=== PATIENT | male | born 1980 | race Caucasian/White ===

== ENCOUNTER 2025-08-07 02:36 | Inpatient (IN) | payer OTHER, SELFPAY ==
--- OUTSIDE RECORDS SUMMARY | 2025-08-07 02:41 | XMS_ITS | Encounter Summary ---
Author Organization [facility] r Address 1 [place] [address] Phone Care Team Providers Care Pharmacy Resource Tech Name Role Phone Federico Crawford LOGISTICS SUPPLY OFFICER Unavailable Unavai lable Pcp-Confirmed, No Primary Care Provider Unavaila ble Reason for Visit * Reason Onset Date Comments External Physician/hospital Call 05/13/2025 Encounter Details Date Type Department Care Team (Late st Contact Info) Description 05/13/2025 Telephone [facility] [address] [facility] 1st [place] [address] [place] [address] External Physician/hospital Call Social History Tobacco Use Types Packs/Day Years Used Date Smoking Tobacco: Never Housing Answer Date Recorded What is your living situation today? I have a [facility] to live 02/27/2025 EOV Answer Date Recorded Many patients we see here ar e being hurt, controlled or threatened by someone they have a relationship with. Are you in a relationship where someone is hurting, controlling or scaring you? No 02/26/2025 Sex and Gender Information Value Date Recorded Sex Assigned at Male 04/23/2024 10:23 AM EDT Legal Sex Male 10:22 AM EDT Gender Identity Male 04/23/2024 10:23 AM EDT Sexual Orientation Straight 06/21/2024 2: 20 PM EDT documented as of this encounter Miscellaneous Notes * Telephone Encounter - Denisa Arnold - 05/13/2025 11:28 AM EDT Patient Reported Reason for Call Patient presents with External Physician/hospital Call Fact Finding Questions Name of Facility and person calling: Pia Tran - [facility] Reason for call: Discuss current admission/medication question Best phone number for the clinic to call you back: [phone] Permission to leave a detailed message: Yes Pia Tran from [facility] at [phone] called requesting to discuss the patient's current admission and to verify his medications. documented in this encounter Plan of Treatment Not on file documented as of this encounter Visit Diagnoses Not on filedocumented in this encounter Care Teams Pharmacy Resource Tech Relationship Specialty Start Date End Date Federico Crawford NP [address] [place] [address] PCP - Insurance 04/30/24 Pcp-Confirmed, No PCP - General 06/21/24 documented as of this encounter
--- OUTSIDE RECORDS SUMMARY | 2025-08-07 02:41 | XMS_ITS | Clinical Summary ---
Author Organization [facility] r Address 1 [place] [address] Phone Care Team Providers Care Field Crew Chief Name Role Phone Federico Crawford SKILLED NURSING PROFESSIONAL Unavailable Unavai lable Pcp-Confirmed, No Primary Care Provider Unavaila ble Allergies Active Allergy Reactions Criticality Noted Date Comments Aloe Unknown 05/25/2024 Medications lisinopriL (PRINIVIL;ZESTR IL) 5 mg tablet Take 1 tablet (5 mg total) by mouth daily. 30 tablet 07/03/2024 Active atorvastatin (LIPITOR) 20 mg tablet Take 1 tablet (20 mg total) by mouth daily with dinner for 30 days. 30 tablet 03/12/2025 Active insulin glargine 100 unit/mL (LANTUS) vial Inject 15 Units under the skin nightly for 30 days. 4.5 mL 03/12/2025 Active metFORMIN (GLUCOPHAGE) 500 mg tablet Take 1 tablet (500 mg total) by mouth 2 (two) times a day with meals for 30 days. 60 tablet 03/12/2025 Active ARIPiprazole (ABILIFY) 20 MG tablet Take 1 tablet (20 mg total) by mouth daily. 90 tablet 1 03/25/2025 Active cloZAPine (CLOZARIL) 50 MG tablet Take 3 tablets (150 mg total) by mouth nightly. 90 tablet 5 03/25/2025 Active melatonin 3 mg Tab Take 2 tablets (6 mg total) by mouth nightly as needed for sleep. 180 tablet 1 03/25/2025 6 Active cyanocobalamin 1000 MCG tablet Take 1 tablet (1,000 mcg total) by mouth daily for 90 days. 90 tablet 05/26/2025 5 Active Active Problems Problem Noted Date Diagnosed Date Hospital discharge follow-up 03/25/2025 Schizoaffective disorder, depressive type ([facility]/ HS/HCC) 06/25/2024 Major depressive disorder, r ecurrent, severe with psychotic symptoms ([facility]/HHS/HCC) 06/19/2024 Suicidal ideations 04/11/2024 Unspecified psychosis not du e to a substance or known physiological condition ([facility]) 04/11/2024 Encounters Date Type Department Care Team Description 08/06/2025 Telephone [facility] [address] [address] Josh Bean MD Coordination Of Care 07/15/2025 Telephone [facility] [address] [address] Josh Bean MD External Physician/hospital Call 06/10/2025 8:00 AM EDT Office Visit [facility] [address] [phone] Josh Bean MD Schizoaffective disorder, depressive type ([facility]/HCC) (Primary Dx) 06/05/2025 Documentation [facility] [address] [place] [phone] Liam Monroy 06/04/2025 10:00 AM EDT Clinical Support [facility] [address] [place] [phone] Alfred Rockwell Schizoaffective disorder, depressive type ([facility]/HHS/HCC) (Primary Dx) 06/03/2025 Telephone [facility] [address] [place] [phone] Alfred Rockwell 05/24/2025 Refill [facility] [address] [place] [address] Josh Bean MD 05/19/2025 Telephone [facility] [address] [facility] 1st floor [address] [place] [phone] Talia Esteves 05/13/2025 Telephone [facility] [address] [address] Josh Bean MD External Physician/hospital Call from Last 3 Months Immunizations Immunization Administration Dates Next Due PPD Test 02/27/2025(),06/25/2024() Social History Tobacco Use Types Packs/Day Years Used Date Smoking Tobacco: Never Tobacco Cessation:Counseling Given: Not Answered Housing Answer Date Recorded What is your living situation today? I have a [facility] place to live 02/27/2025 EOV Answer Date Recorded [...] Orientation Straight 06/21/2024 2: 20 PM EDT Last Filed Vital Signs Vital Sign Reading Time Taken Comments Blood Pressure 108/69 06/10/2025 8:16 AM EDT Pulse 114 06/10/2025 8:16 AM EDT Temperature 36.7 C (98 F) 06/10/2025 8:16 AM EDT Respiratory Rate 18 03/11/2025 5:29 PM EDT Oxygen Saturation 99% 06/10/2025 8:16 AM EDT Inhaled Oxygen Concentration - - Weight 69.4 kg (153 lb) 06/10/2025 8:16 AM EDT Height 170.2 cm (5' 7 ) 02/27/2025 4:43 PM EDT Body Mass Index 23.96 02/27/2025 4:43 PM EDT Plan of Treatment Health Maintenance Due Date Last Done Comments HIV Lifetime Screening 1978 Hepatitis B Lifetime Screening 1978 Psych DARRION-7 Screening 1978 Psych PCL-5 Screening 1978 Psych PHQ Screening 1978 THRIVE SCREENING 1978 Oral Health Screen 1978 HEIP Disability Screen 1983 BEHAVIORAL HEALTH SCREEN 1990 Psych Substance Use Screen 1990 DTAP/TDAP VACCINE (1 - Tdap) 1997 Pneumonia Vaccine 0-49 Years (1 of 2 - PCV) 1997 Colonoscopy FOBT- Positive 2023 Colonoscopy 2023 Colorectal Cancer Screening 2023 FOBT 2023 Sigmoidoscopy 2023 LIPID PANEL 03/25/2026 03/25/2025, 02/10, 06/26/2024 Zoster Vaccine (1 of 2) 2028 COVID-19 Vaccine Discontinued 06/12/2024, 07/2022, 02/10/2021, Additional history exists Hepatitis C Antibody Lifetime Screening Completed 02/28/2025, 02/26/2025 INFLUENZA VACCINE Completed 05/20/2025, , 08/11/2017 HPV VACCINES Aged Out No longer eligi ble based on patient's age to complete this topic IPV VACCINES Aged Out No longer eligi ble based on patient's age to complete this topic MENINGOCOCCAL B Aged Out No longer el igible based on patient's age to complete this topic ROTAVIRUS VACCINES Aged Out No longer eligible based on patient's age to complete this topic Procedures Procedure Name Priority Date/Time Associated Diagnosis Comments LIPID PANEL Routine 03/25/2025 2:39 PM EDT Schizoaffective disorder, depressive type ([facility]) Hospital discharge follow-up HCV AB REFLEX TO CONFIRMATORY/ALEXANDRO L LOAD AND GENOTYPE Routine - Nursing 02/28/2025 10:27 AM EDT from Last 3 Months or Most Recently Relevant to Health Maintenance Results * Lipid panel (03/25/2025 2:39 PM EDT) Cholesterol 124 <200 mg/dL 03/25/2025 3:45 PM EDT [facility] Comment:CHOLESTEROL RISK CLA SSIFICATION: <200 MG/DL = LOW RISK, 200 to 239 MG/DL = BORDERLINE/HIGH RISK, >239 MG/DL = HIGH RISK. Triglyceride 114 40 - 200 MG/DL 03/25/2025 3:45 PM EDT [facility] HDL Cholesterol 47 >34 mg/dL 3:45 PM EDT [facility] Comment:HDL CHOLESTEROL RISK CLASSIFICATION: >55 MG/DL = LOW RISK, <35 MG/DL = HIGH RISK. LDL Cholesterol,Calcu lated 54 <130 mg/dL 03/25/2025 3:45 PM EDT [facility] Comment:LDL CHOLESTEROL RISK CLASSIFICATION: <130 MG/DL = LOW RISK, 130 to 159 MG/DL = BORDERLINE RISK, >159 MG/DL = HIGH RISK. 03/25/2025 2:39 PM EDT 03/25/2025 2:42 PM EDT us Josh Bean MD LAB BLOOD ORDERABLES Final Re sult Performing Organization Address City/[facility]/ZIP Co de Phone Number [facility] CLIA [id number] [address] * HCV Ab reflex to Confirmatory/Viral load and Genotype (02/28/2025 10:27 AM EDT) Hepatitis C Antibody NON-REACTI VE NON-REACTI VE 02/28/2025 5:46 PM EDT [facility] 02/28/2025 10:2 7 AM EDT 02/28/2025 11:06 AM EDT us Idris Hasnen MD LAB BLOOD ORDERABLES Final Res ult [facility] CLIA [id number] [address] from Last 3 Months or Most Recently Relevant to Health Maintenance Advance Directives For more information, please contact: [phone] (Available ) * Full Code (Latest Code Status on File) Date Activated Date Inactivated Comments 02/27/2025 5:16 PM Question Answer Comments Does patient have MOLST form? No Reviewed with patient? No * Full Code Date Activated Date Inactivated Comments 06/25/2024 2:33 PM 02/26/2025 3:40 PM Question Answer Comments Does patient have MOLST form? No Reviewed with patient? No Care Teams Field Crew Chief Relationship Specialty Start Date End Date Federico Crawford NP [address] [place] [address] PCP - Insurance 04/30/24 Pcp-Confirmed, No PCP - General 06/21/24
--- OUTSIDE RECORDS SUMMARY | 2025-08-07 02:41 | XMS_ITS | Encounter Summary ---
Author Organization [facility] r Address 1 [place] [address] Phone Care Team Providers Care Estimating Manager Name Role Phone Federico Crawford HUMAN RESOURCES ADMINISTRATOR Unavailable Unavai lable Pcp-Confirmed, No Primary Care Provider Unavaila ble Encounter Details Date Type Department Care Team (Late st Contact Info) Description 02/26/2025 Telephone [facility] [address] [place] [address] [address] [place] [phone] [place] [address] Social History Tobacco Use Types Packs/Day Years Used Date Smoking Tobacco: Never Housing Answer Date Recorded What is your living situation today? I have a [facility] to live 02/27/2025 EOV Answer Date Recorded [...] PM EDT documented as of this encounter Functional Status * Drug Abuse Screening Test (DAST-10) Question Answer Date of Assessment Author DAST-10 Score 1 02/27/2025 4:50 PM EDT Cris Nielsen RN * Calculated C-SSRS Risk Score (Lifetime/Recent) Answer Date of Assessment Author No Risk Indicated 02/27/2025 4:51 PM EDT Cris Sanchez RN * Ruth Suicide Severity Rating Scale (Screener/Recent Self-Report) Question Answer Date of Assessment Author 1. Wish to be (Past 1 Month) No 025 4:51 PM EDT Cris Sanchez RN 2. Non-Specific Active Suici lila Thoughts (Past 1 Month) No 02/27/2025 4:51 PM EDT Salo Sanchez RN 6. Suicidal Behavior (Lifetime) No 4:51 PM EDT Cris Sanchez RN documented as of this encounter Plan of Treatment Not on file documented as of this encounter Visit Diagnoses Not on filedocumented in this encounter Care Teams Estimating Manager Relationship Specialty Start Date End Date Federico Crawford NP [address] [place] [address] PCP - Insurance 04/30/24 Pcp-Confirmed, No PCP - General 06/21/24 documented as of this encounter
--- OUTSIDE RECORDS SUMMARY | 2025-08-07 02:41 | XMS_ITS | Encounter Summary ---
Author Organization [facility] r Address 1 [place] [address] Phone Care Team Providers Care Estimating Engineer Name Role Phone Federico Crawford PASSENGER TIRE BUILDER Unavailable Unavai lable Pcp-Confirmed, No Primary Care Provider Unavaila ble Reason for Visit * Reason Onset Date Comments Coordination Of Care 08/06/2025 Encounter Details Date Type Department Care Team (Late st Contact Info) Description 08/06/2025 Telephone [facility] [address] [facility] 1st [place] [address] [place] [address] Coordination Of Care Social History Tobacco Use Types Packs/Day Years Used Date Smoking Tobacco: Never Housing Answer Date Recorded What is your living situation today? I have a [facility] to live 02/27/2025 EOV Answer Date [...] encounter Miscellaneous Notes * Telephone Encounter - Roro Portillo - 08/06/2025 9:10 AM EST Patient Reported Reason for Call Patient presents with Coordination Of Care Marylin Cantrell Psychiatrist from [facility] calling in re: to Pt to speak to provider. Advised of TAT. [phone] (cell phone). documented in this encounter Plan of Treatment Not on file documented as of this encounter Visit Diagnoses Not on filedocumented in this encounter Care Teams Estimating Engineer Relationship Specialty Start Date End Date Federico Crawford NP [address] [place] [address] PCP - Insurance 04/30/24 Pcp-Confirmed, No PCP - General 06/21/24 documented as of this encounter
--- OUTSIDE RECORDS SUMMARY | 2025-08-07 02:41 | XMS_ITS | Encounter Summary ---
Author Organization [facility] r Address 1 [place] [address] Phone Care Team Providers Care Displayer Merchandise Name Role Phone Federico Crawford COLD ROLL OPERATOR Unavailable Unavai lable Pcp-Confirmed, No Primary Care Provider Unavaila ble Reason for Visit * Reason Onset Date Comments External Physician/hospital Call 07/15/2025 Encounter Details Date Type Department Care Team (Late st Contact Info) Description 07/15/2025 Telephone [facility] [address] [facility] 1st [place] [address] [place] [address] External Physician/hospital Call Social History Tobacco Use Types Packs/Day Years Used Date Smoking Tobacco: Never Housing Answer Date Recorded What is your living situation today? I have a [facility] to live 02/27/2025 EOV Answer Date Recorded [...] encounter Miscellaneous Notes * Telephone Encounter - Karolina Walker - 07/15/2025 1:47 PM EST Patient Reported Reason for Call Patient presents with External Physician/hospital Call Fact Finding Questions Name of Facility and person calling: [facility] Reason for call: Pt is admitted to hospital planning on discharge and would like to discuss pysch meds. Best phone number for the clinic to call you back: [phone] Permission to leave a detailed message: yes Heath REYES from [facility]. Pt is currently admitted and they are planning his discharge. Heath would like to discuss pt's psych medications with Dr. Bean. Please call back at your earliest convenience. CB: [phone] documented in this encounter Plan of Treatment Not on file documented as of this encounter Visit Diagnoses Not on filedocumented in this encounter Care Teams Displayer Merchandise Relationship Specialty Start Date End Date Federico Crawford NP [address] [place] [address] PCP - Insurance 04/30/24 Pcp-Confirmed, No PCP - General 06/21/24 documented as of this encounter
--- OUTSIDE RECORDS SUMMARY | 2025-08-07 02:42 | XMS_ITS | Encounter Summary ---
Author Organization [facility] r Address 1 [place] [address] Phone Care Team Providers Care Merchandise Team Manager Name Role Phone Federico Crawford FREIGHT AIR BRAKE FITTER Unavailable Unavai lable Pcp-Confirmed, No Primary Care Provider Unavaila ble Encounter Details Date Type Department Care Team (Late st Contact Info) Description 12/16/2024 Documentation [facility]PARTMENT [address] [facility] [place] [address] Onbase, Scan Social History Tobacco Use Types Packs/Day Years Used Date Smoking Tobacco: Never Housing Answer Date Recorded What is your living situation today? I have a [facility] place to live 06/25/2024 EOV Answer Date Recorded Many patients we see here ar e being hurt, controlled or threatened by someone they have a relationship with. Are you in a relationship where someone is hurting, controlling or scaring you? No 06/25/2024 Sex and Gender Information Value Date Recorded Sex Assigned at Male 04/23/2024 10:23 AM EDT Legal Sex Male 10:22 AM EDT Gender Identity Male 04/23/2024 10:23 AM EDT Sexual Orientation Straight 06/21/2024 2: 20 PM EDT documented as of this encounter Plan of Treatment Not on file documented as of this encounter Visit Diagnoses Not on filedocumented in this encounter Care Teams Merchandise Team Manager Relationship Specialty Start Date End Date Federico Crawford NP [address] [place] [address] PCP - Insurance 04/30/24 Pcp-Confirmed, No PCP - General 06/21/24 documented as of this encounter
--- OUTSIDE RECORDS SUMMARY | 2025-08-07 02:42 | XMS_ITS | Encounter Summary ---
Author Organization [facility] r Address 1 [place] [address] Phone Care Team Providers Care Taker Away Name Role Phone Federico Crawford EVENT SERVICES MANAGER Unavailable Unavai lable Pcp-Confirmed, No Primary Care Provider Unavaila ble Reason for Visit * Reason Onset Date Comments External Physician/hospital Call 10/23/2024 Encounter Details Date Type Department Care Team (Late st Contact Info) Description 10/23/[address] [address] [place] [address] External Physician/hospital Call Social History Tobacco Use Types Packs/Day Years Used Date Smoking Tobacco: Never Housing Answer Date Recorded What is your living situation today? I have a [facility] place to live 06/25/2024 EOV Answer [...] encounter Miscellaneous Notes * Telephone Encounter - Fernando Fischer - 10/23/2024 11:39 AM EST Patient Reported Reason for Call Patient presents with External Physician/hospital Call Fact Finding Questions Name of Facility and person calling: [facility] Reason for call: Pt History Best phone number for the clinic to call you back: [phone] Stefania calling from [facility] Psych[facility]ric [facility], states she working with Dr [email or web address] Was looking to connect with you Adv tat documented in this encounter Plan of Treatment Not on file documented as of this encounter Visit Diagnoses Not on filedocumented in this encounter Care Teams Taker Away Relationship Specialty Start Date End Date Federico Crawford NP [address] [place] [address] PCP - Insurance 04/30/24 Pcp-Confirmed, No PCP - General 06/21/24 documented as of this encounter
--- OUTSIDE RECORDS SUMMARY | 2025-08-07 02:42 | XMS_ITS | Clinical Summary ---
Author Organization [facility] Address [address] [place] [address] Care Team Providers Care Income Tax Advisor Name Role Phone None, Pcp Primary Care Provider Unavailmaliha e Federico Crawford CLASSIFIED ADVERTISING MANAGER Unavailable [phone] Medications * This document contains information received from the source organization and may not represent a complete record from that organization. FLUoxetine (PROzac) 40 MG capsule 40 MG PO DAILY #30 CAP 30 Days 30 capsule 0 04/25/2024 Active metFORMIN (GLUCOPHAGE) 500 MG tablet 500 MG PO BID@0800,17 00 #60 TAB 30 Days 60 tablet 0 04/23/2024 Active prazosin (MINIPRESS) 1 MG capsule 2 MG PO HS #30 CAP 30 Days 30 capsule 0 04/25/2024 Active insulin glargine (LANTUS SOLOSTAR U-100 INSULIN) 100 unit/mL (3 mL) SubQ Pen 15 UNIT SQ HS 7 Days 1 Syringe 1 04/23/2024 Active Active Problems Problem Noted Date Diagnosed Date Unspecified psychosis not du e to a substance or known physiological condition 04/11/2024 Suicidal ideations 04/11/2024 Social History Tobacco Use Types Packs/Day Years Used Date Smoking Tobacco: Never Assessed Sex and Gender Information Value Date Recorded Sex Assigned at Male 04/11/2024 6:48 PM EDT Legal Sex Male 9:33 AM EDT Gender Identity Male 04/11/2024 4:19 PM EDT Sexual Orientation Not on file Last Filed Vital Signs Vital Sign Reading Time Taken Comments Blood Pressure - - Pulse - - Temperature - - Respiratory Rate - - Oxygen Saturation - - Inhaled Oxygen Concentration - - Weight 75 kg (165 lb 5.5 oz) 04/11/2024 9:35 AM EDT Height 167.6 cm (5' 6 ) 04/11/2024 9:35 AM EDT Body Mass Index 26.69 04/11/2024 9:35 AM EDT Plan of Treatment Health Maintenance Due Date Last Done Comments Blood Pressure 1978 PSA 1978 Prostate Cancer Screening 1978 SDM 1978 Urine Microalbumin 1978 Depression Screening 1990 Hepatitis C Screening 1996 DTaP,Tdap,and Td Vaccines (1 - Tdap) 1997 Pneumococcal Vaccine (1 of 2 - PCV) 1997 CT Colonography 2023 Colonoscopy 2023 Colorectal Cancer Screening 2023 FIT 2023 FOBT 2023 Multitarget Stool DNA (Cologuard) 2023 Sigmoidoscopy 2023 Hemoglobin A1c 10/14/2024 04/13/2024 COVID-19 Vaccine (1 - 2024-2 6 season) 2025 Influenza Vaccine (#1) 2025 Lipid Panel 06/26/2025 06/26/2024, 04/13/2024 Meningococcal B Vaccines Aged Out No longer eligible based on patient's age to complete this topic Meningococcal Vaccines Aged Out No lo nger eligible based on patient's age to complete this topic Procedures Procedure Name Priority Date/Time Associated Diagnosis Comments HEMOGLOBIN A1C Routine 04/13/2024 7:40 AM EDT LIPID PANEL Routine 04/13/2024 7:40 AM EDT from Last 3 Months or Most Recently Relevant to Health Maintenance Results * (ABNORMAL) Hemoglobin A1C (04/13/2024 7:40 AM EDT) Hemoglobin A1C 12.0(H) <=5.7 % CONVE RSION FROM [facility] Comment: The [place] [employer] has revised the recommendations for reference ranges for Glycohemoglobin. They are: < 5.7%: Normal Range in non-diabetic patients 5.7- 6.4%: Repeated measurements in this range consistent with pre-diabetes. >or = 6.5%: Consistent with diabetes 04/13/2024 7:40 AM EDT 04/13/2024 7:49 AM EDT us Kala Robles MD LAB BLOOD ORDERABLES Final Res ult CONVERSION FROM [facility] * (ABNORMAL) Lipid Panel (04/13/2024 7:40 AM EDT) Cholesterol 315(H) 0 - 200 mg/dL CONVERSION FROM [facility] Triglycerides 177(H) 0 - 150 mg/dL CONVERSION FROM [facility] HDL Cholesterol 61 >=60 mg/dL CONVERSION FROM [facility] Direct LDL Cholesterol 230(H) 0 - 100 mg/dL CONVERSION FROM [facility] Ratio Chol/HDL 5 0 - 5 CONVE RSION FROM [facility] [employer] 04/13/2024 7:40 AM EDT 04/13/2024 7:49 AM EDT us Kala Robles MD LAB BLOOD ORDERABLES Final Res ult CONVERSION FROM [facility] from Last 3 Months or Most Recently Relevant to Health Maintenance [facility] [employer] Care Teams Income Tax Advisor Relationship Specialty Start Date End Date None, Pcp, PCP - General 04/11/24 Federico Crawford NP PCP - Insurance Assigned PCP 12/04/24
--- OUTSIDE RECORDS SUMMARY | 2025-08-07 02:42 | XMS_ITS | Encounter Summary ---
Author Organization [facility]to [facility] Address [address] [place] [address] Care Team Providers Care Transformer Coil Winder Name Role Phone None, Pcp Primary Care Provider Federico Marquez TELEPHONE SALES REPRESENTATIVE Unavailable [phone] Encounter Details Date Type Department Care Team (Late st Contact Info) Description 04/11/2024 Lab [facility] Eloy Canales MD [address] [place] [address] Social History Tobacco Use Types Packs/Day Years Used Date Smoking Tobacco: Never Assessed Sex and Gender Information Value Date Recorded Sex Assigned at Male 04/11/2024 6:48 PM EDT Legal Sex Male 9:33 AM EDT Gender Identity Male 04/11/2024 4:19 PM EDT Sexual Orientation Not on file documented as of this encounter Plan of Treatment Not on file documented as of this encounter Procedures Procedure Name Priority Date/Time Associated Diagnosis Comments CULTURE, AEROBIC, URINE Routine 04/11/2024 11:22 AM EDT documented in this encounter Results * Culture, Aerobic, Urine (04/11/2024 11:22 AM EDT) Culture No growth DK 04/12/2024 12:59 PM EDT [facility] Urine MID-STREAM URINE SPECIMEN / Unknown 04/11/2024 11:22 AM EDT 04/11/2024 2:25 PM EDT us Eloy Canales MD MICROBIOLOGY - GENERAL ORDERABLE S Final Result [facility] [address] [facility] [place] [address], documented in this encounter Visit Diagnoses Not on filedocumented in this encounter Care Teams Transformer Coil Winder Relationship Specialty Start Date End Date None, Pcp, PCP - General 04/11/24 Federico Crawford NP PCP - Insurance Assigned PCP 12/04/24 documented as of this encounter
--- OUTSIDE RECORDS SUMMARY | 2025-08-07 02:42 | XMS_ITS | Encounter Summary ---
Author Organization [facility] r Address [address] [place] [address] Phone Care Team Providers Care Chamfering Machine Operator Name Role Phone Federico Crawford MATH TEACHER Unavailable Unavai lable Pcp-Confirmed, No Primary Care Provider Unavaila ble Reason for Visit * Reason Onset Date Comments Appointment 01/08/2025 Encounter Details Date Type Department Care Team (Late st Contact Info) Description 01/08/2025 Telephone [facility] [address] [facility] 1st [place] [address] [place] [address] Appointment Social History Tobacco Use Types Packs/Day Years Used Date Smoking Tobacco: Never Housing Answer Date Recorded What is your living situation today? I have a [facility] to live 06/25/2024 EOV Answer Date Recorded [...] encounter Miscellaneous Notes * Telephone Encounter - Madalyn Skyler - 01/08/2025 9:17 AM EDT No chief complaint on file. Pt called to schedule appt with Provider last seen 08/2024. Pt cb # [phone] advised TAT documented in this encounter Plan of Treatment Not on file documented as of this encounter Visit Diagnoses Not on filedocumented in this encounter Care Teams Chamfering Machine Operator Relationship Specialty Start Date End Date Federico Crawford NP [address] [place] [address] PCP - Insurance 04/30/24 Pcp-Confirmed, No PCP - General 06/21/24 documented as of this encounter
--- OUTSIDE RECORDS SUMMARY | 2025-08-07 02:42 | XMS_ITS | Encounter Summary ---
Author Organization [facility] r Address [address] [place] [address] Phone Care Team Providers Care Blade Bender Furnace Tender Name Role Phone Federico Crawford CHARGEBACK ANALYST Unavailable Unavai lable Pcp-Confirmed, No Primary Care Provider Unavaila ble Reason for Visit * Reason Onset Date Comments Medication Refill 01/27/2025 Encounter Details Date Type Department Care Team (Late st Contact Info) Description 01/27/2025 Refill [facility] [address] [place] [address] Pcp-Confirmed, No Social History Tobacco Use Types Packs/Day Years Used Date Smoking Tobacco: Never Housing Answer Date Recorded What is your living situation today? I have a [facility] to live 06/25/2024 EOV Answer Date Recorded [...] on filedocumented in this encounter Care Teams Blade Bender Furnace Tender Relationship Specialty Start Date End Date Federico Crawford NP [address] [place] [address] PCP - Insurance 04/30/24 Pcp-Confirmed, No PCP - General 06/21/24 documented as of this encounter
--- OUTSIDE RECORDS SUMMARY | 2025-08-07 02:42 | XMS_ITS | Encounter Summary ---
Author Organization [facility] r Address [address] [place] [address] Phone Care Team Providers Care Business Objects Consultant Name Role Phone Federico Crawford SORT SUPERVISOR Unavailable Unavai lable Pcp-Confirmed, No Primary Care Provider Unavaila ble Encounter Details Date Type Department Care Team (Late st Contact Info) Description 10/10/2024 Telephone [facility] [address] [facility] 1st floor [id number] [place] [phone] [place] [address] Social History Tobacco Use Types Packs/Day Years Used Date Smoking Tobacco: Never Housing Answer Date Recorded What is your living situation today? I have a [facility] to live 06/25/2024 EOV Answer Date [...] on filedocumented in this encounter Care Teams Business Objects Consultant Relationship Specialty Start Date End Date Federico Crawford NP [address] [place] [address] PCP - Insurance 04/30/24 Pcp-Confirmed, No PCP - General 06/21/24 documented as of this encounter
[2025-08-07 03:05] VITALS: BP 144/58; PULSE 109; RESP 18; TEMP 36.4; O2SAT 95
[2025-08-07 03:42] VITALS: BMI 23.2
[2025-08-07 03:53] LABS: Glucose, Whole Blood 175 mg/dL (60-115)
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
[2025-08-07 07:00] VITALS: BMI 23.3
[2025-08-07 08:09] LABS: Glucose, Whole Blood 153 mg/dL (60-115)
--- NOTE | 2025-08-07 08:19 | PHA.MEDREC ---
Pharmacy Consult ? Medication Reconciliation Pharmacy has reviewed the medication reconciliation done by nursing and also updated med list using discharge med list from [facility]. It's noted on med list patient last received clozapine 150 mg at bedtime on 08/05/25 @2116, insulin glargine 16 units at bedtime and patient is not taking cefpodoxime 200 mg (q12h) reported on 08/03/25.
--- NOTE | 2025-08-07 08:36 | HO.PSYADMNOT ---
HPI Date of Service: 08/07/25 Chief Complaint: Schizoaffective D/O & PTSD Sources of Information: patient interviewed, chart reviewed and crisis/core team assessment reviewed HPI Subjective Notes: Lowry Warning and Conditional Voluntary Narrative: Mr. Montelongo is a 45 year-old male with hx of schizophrenia. Pt was brought to [facility] ED due to presenting as confused and less interactive. It appears that there had been concerns in terms of his ability to care for himself and follow up with care at home. He had episode of urinary retention for what freitas was inserted on 05/21/2025 complicated by ventral meatal erosion. He failed to attend OP appointments with OP urologist. He had UTI but unclear if he had completed treatment. He was medically admitted. He was afebrile. No respiratory symptoms noted although chest CT did show clustered groundglass nodules. He initially was started on IV antibiotic given concern of AMS, but these were discontinued when culture came back negative. Per [facility]NA pt had stopped taking clozapine few days prior to presenting to the ED. He also had constipation, which was proactively treated with lactulose, senna and miralax. Freitas was removed on 08/05/2025- will continue to monitor urinary retention. Also, his mother 4 days prior to presenting to the hospital. Pt presents as calm and cooperative. He reports he was confused. He reports he remembered hearing voices but denies any voices today. He does report at baseline he sees animals and people. He report she saw two cats jumping out of bed today. He reports auditory hallucinations are common but denies hearing voices today. He denies SI/HI. He reports he started clozapine one year ago and it has been helpful. He reports his sleep is good. He reports he has a hx of suicide attempts but none recently. He reports his medications are in a locked box and [facility] gives them to him given extensive hx of OD on his medications (pt reports more than 50 times he has OD, his sister of suicide, and brother has attempted suicide). He presents as future oriented stating that he is feeling better and hopes at some point soon to return to school. Past Psychiatric History: Inpt: he reports 2 hospitalization. last one was back in April 2025. OP: sees therapist but can't remember name. He reports he has been seeing psychiatrist, Josh Bean for the past 2 years. Past medication trials: clozapine, abilify. Hx of suicide attempts: pt reports more than 50 times he has intentionally OD. Now his medications are in a locked box. Medical Evaluation Reviewed: Yes [facility] Medical History (Updated 08/07/25 @ 15:47 by Calista Jo NP) Urinary retention Diabetes Family History: sister of suicide, brother has attempted suicide. Social History: Pt was born in [place]. He reports he is . No children. Completed some college. currently not working. Substance History: denies Trauma History: denies Diagnostics Vital Signs (24Hr): Vital Signs - 24 hr 08/07/25 03:05 Temperature 97.6 F Pulse Rate 109 H Respiratory Rate 18 Blood Pressure 144/58 H Pulse Oximetry 95 Oxygen Delivery Method Room Air BMI result Body Mass Index 23.2 Labs 08/07/25 12:07 08/07/25 12:07 Labs: Laboratory Results - last 48 hr 08/07/25 08/07/25 03:48 08:02 POC Glucose 175 H 153 H Meds/Allergies Meds Home Medications ?Medication ?Instructions ?Recorded ?Confirmed ?Type aripiprazole 20 mg tablet 20 mg PO DAILY 08/07/25 08/07/25 History atorvastatin 20 mg tablet 20 mg PO DAILY 08/07/25 08/07/25 History bacitracin 500 unit/gram topical 1 appl topical TID 08/07/25 08/07/25 History ointment benztropine 1 mg tablet 1 mg PO BID 08/07/25 08/07/25 History clozapine 100 mg tablet 150 mg PO BEDTIME 08/07/25 08/07/25 History cyanocobalamin (vitamin B-12) 1,000 mcg PO DAILY 08/07/25 08/07/25 History 1,000 mcg tablet (Vitamin B-12) diclofenac sodium 1 % topical gel 2 g topical QID PRN Pain 08/07/25 08/07/25 History docusate sodium 100 mg capsule 100 mg PO BID 08/07/25 08/07/25 History ferrous sulfate 325 mg (65 mg 325 mg PO DAILY 08/07/25 08/07/25 History iron) tablet finasteride 5 mg tablet 5 mg PO DAILY 08/07/25 08/07/25 History glipizide 10 mg tablet 10 mg PO DAILY 08/07/25 08/07/25 History insulin glargine 100 unit/mL 16 unit subcut BEDTIME 08/07/25 08/07/25 History subcutaneous solution (Lantus U-100 Insulin) melatonin 3 mg tablet 3 mg PO BEDTIME PRN insomnia 08/07/25 08/07/25 History metformin 500 mg tablet 500 mg PO BID 08/07/25 08/07/25 History polyethylene glycol 3350 17 34 g PO BID 08/07/25 08/07/25 History gram/dose oral powder (Gavilax) sennosides 8.6 mg tablet (senna) 17.2 mg PO BID 08/07/25 08/07/25 History tamsulosin 0.4 mg capsule 0.4 mg PO DAILY 08/07/25 08/07/25 History Allergies Allergies Allergy/AdvReac Type Severity Reaction Status Date / Time alchandler vera AdvReac Hives Verified 08/07/25 04:24 Mental Status Exam Mental Status Exam Narrative: Appearance: wearing hospital gown, fair hygiene, in NAD Behavior: cooperative Psychomotor: no agitation or retardation noted Speech: clear, normal rate/rhythm/volume, spontaneous TP: linear TC: feeling better Mood: better Affect: constricted SI: denies HI: denies VH/AH: reports at baseline intermittent VH/AH. Delusions: no overt delusional content reported Insight/judgment: fair x 2. Memory/cog: alert, oriented x 3. Assessment & Plan Assessment & Plan (1) Schizophrenia: Status: Acute Code(s): F20.9 - Schizophrenia, unspecified Plan Mr. Montelongo is a 45 year-old male with hx of schizophrenia who initially was brought by his brother to [facility] ED due to presenting as more confused and not interacting as much. He was medically admitted for AMS. He was treated for urinary retention, zena came out on 08/05/2025- we will continue bladder scans to make sure retention is not ongoing. He also had constipation which seems to have resolved. He is currently on senna and miralax regimen. He was also restarted on clozapine which he had stopped days prior to presenting to ED. He currently does not present with acute symptoms. He reports at baseline some VH/AH. He does not present with overt delusional content. He has agreed to continue medications. He also denies SI/HI. Note he does have significant hx of suicide attempts as well as strong family hx of completed suicide (sister) and brother as also attempted suicide. He has supports in the community from his OP psychiatrist, Dr. Josh Bean (pending collateral information) and VNA through [facility] ([phone]). PLAN 1. admit to M3, CV, 15 minutes checks for safety 2. will check clozapine levels on 08/07 prior to night time dose. continue abilify 20mg po daily which was increased from 15mg to 20 at prior hospital. 3. continue bladder scan x 2 days. straigh cath if residual>500cc, may need to see urology. 4. obtain collateral information 5. aftercare planning. Patient educated on: diagnosis and medication risk/benefits Reason for continued inpatient stay Substantial Risk for: inability to function Statement Statement: I have reviewed the history and physical and performed a pertinent examination on my patient. No changes have occurred unless specified. If the History and Physical was not performed prior to admission, the Hospitalist's service will be consulted for completing the admission physical. Time Spent With Patient Time: Total time managing care of this patient today ____ minutes.
[2025-08-07 09:10] VITALS: BP 109/72; PULSE 89; RESP 14; TEMP 36.5; O2SAT 98
--- NOTE | 2025-08-07 09:18 | P.CONHOSP_ITS ---
History of Present Illness Data of Consult Service Date: 08/07/25 Primary Care Provider: Unknown Physician HPI Reason for consult: routine admission physical This is a 45 year old male with history of HLD, diabetes, urinary retention admitted from [facility] for treatment of schizoaffective disorder. At [facility] he was reportedly treated for urinary tract infection, also noted to have imaging that showed ground-glass nodules in the left lower lobe which reportedly have since resolved. He has history of urinary retention and had Freitas catheter placed proximally 3 months ago but he had failed to follow-up outpatient with Urology. He was noted to have ventral meatal erosion, Freitas catheter was removed and he reportedly passed a voiding trial on 08/05. This morning he states he has not yet urinated. He denies abdominal pain, nausea or vomiting. Review of Systems Review of Systems: Yes all other systems are reviewed and are negative Constitutional: Constitutional: Denies chills and Denies fever(s) Cardiovascular: Cardiovascular: Denies chest pain, Denies palpitations and Denies dyspnea Respiratory: Respiratory: Reports cough and Denies dyspnea Endocrine: Endocrine: Denies palpitations [facility] Medical History (Updated 08/07/25 @ 11:05 by AMY Singh) Urinary retention Diabetes Social History Household Members: Family Housing: Apartment Do you presently have visiting nurse or other home services: Yes Patient Tobacco Use Status: Never used Tobacco Have you been hit, kicked, punched, or otherwise hurt by someone within the past year? If so, by whom?: No Do you feel safe in your current relationship?: No Current Relationship Is there a partner from a previous relationship who is making you feel unsafe now?: No Are you made to feel afraid or neglected: No Advance Directives: No Advance Directives Information Provided: No Advance Directives on File: No Do you have a plan to hurt others: No Plan Recently lost weight without trying: No Nutrition Risks: No Nutritional Risk Poor oral hygiene: No Meds Allergies Allergy/AdvReac Type Severity Reaction Status Date / Time aloe vera AdvReac Hives Verified 08/07/25 04:24 Active Medications: Current Medications Acetaminophen (Acetaminophen 325 Mg Tablet) 650 mg PO Q6H PRN PRN Reason: Headache/Pain, Scale 1-10 Al Hydroxide/Mg Hydroxide (Magnesium Hydrox/Alum Hydrox 30 Ml Oral.Susp) 30 ml PO Q6H PRN PRN Reason: Heartburn/Nausea Aripiprazole (Aripiprazole 20 Mg Tablet) 20 mg PO DAILY [facility] Atorvastatin Calcium (Atorvastatin Calcium 20 Mg Tablet) 20 mg PO DAILY [facility] Benztropine Mesylate (Benztropine Mesylate 1 Mg Tablet) 1 mg PO BID [facility] Clozapine 100 mg/ Clozapine 50 (mg) 150 mg PO BEDTIME [facility] Cyanocobalamin (Cyanocobalamin (Vitamin B-12) 1,000 Mcg Tablet) 1,000 mcg PO DAILY [facility] Finasteride (Finasteride 5 Mg Tablet) 5 mg PO DAILY [facility] Glipizide (Glipizide 10 Mg Tablet) 10 mg PO DAILY [facility] Hydroxyzine HCl (Hydroxyzine Hcl 25 Mg Tablet) 25 mg PO Q6H PRN PRN Reason: mild anxiety Insulin Glargine (Insulin Glargine,Hum.Rec.Anlog 100 Unit/Ml 10 Ml Vial) 16 unit SUBCUT BEDTIME [facility] Magnesium Hydroxide (Milk Of Magnesia 30 Ml Oral.Susp) 30 ml PO DAILY PRN PRN Reason: Constipation Melatonin (Melatonin 3 Mg Tablet) 3 mg PO BEDTIME PRN PRN Reason: Insomnia Metformin HCl (Metformin Hcl 500 Mg Tablet) 500 mg PO BIDWM [facility] Nicotine Polacrilex (Nicotine Polacrilex 2 Mg Gum) 2 mg BUCCAL Q2H PRN PRN Reason: Nicotine Cravings Polyethylene Glycol (Polyethylene Glycol 3350 17 Gm Powd.Pack) 17 gm PO DAILY PRN PRN Reason: Constipation Senna/Docusate Sodium (Sennosides/Docusate Sodium Tablet) 1 tab PO BID [facility] Tamsulosin HCl (Tamsulosin Hcl 0.4 Mg Capsule) 0.4 mg PO DAILY [facility] Trazodone HCl (Trazodone Hcl 50 Mg Tablet) 50 mg PO BEDTIME MRX1 PRN PRN Reason: Insomnia Vitamin D (Cholecalciferol (Vitamin D3) 25 Mcg Tablet) 50 mcg PO DAILY [facility] Home Medications ?Medication ?Instructions ?Recorded ?Confirmed ?Last Taken ?Type aripiprazole 20 mg tablet 20 mg PO DAILY 08/07/2507/1308/06/25 History atorvastatin 20 mg tablet 20 mg PO DAILY 08/07/2507/1308/06/25 21:00 History bacitracin 500 unit/gram topical 1 appl topical TID 08/07/25 Unknown History ointment benztropine 1 mg tablet 1 mg PO BID 08/07/25 5 08/07/25 03:25 History clozapine 100 mg tablet 150 mg PO BEDTIME 08/07/25 1 10/07/24 08/05/25 21:17 History cyanocobalamin (vitamin B-12) 1,000 mcg PO DAILY 08/0708/07/25 08/06/25 09:00 History 1,000 mcg tablet (Vitamin B-12) diclofenac sodium 1 % topical gel 2 g topical QID PRN Pain 08/07/25 08/07/25 Unknown History docusate sodium 100 mg capsule 100 mg PO BID 08/07/25 08/07/25 08/05/25 08:36 History ferrous sulfate 325 mg (65 mg 325 mg PO DAILY 08/07/25 08/07/25 08/04/25 History iron) tablet finasteride 5 mg tablet 5 mg PO DAILY 08/07/2508/0708/06/25 21:00 History glipizide 10 mg tablet 10 mg PO DAILY 08/07/2507/1308/06/25 09:00 History insulin glargine 100 unit/mL 16 unit subcut BEDTIME 08/07/25 08/06/25 21:00 History subcutaneous solution (Lantus U-100 Insulin) melatonin 3 mg tablet 3 mg PO BEDTIME PRN insomnia 08/07/25 08/07/25 Unknown History metformin 500 mg tablet 500 mg PO BID 08/07/2508/07 Unknown History polyethylene glycol 3350 17 34 g PO BID 08/07/2508/0708/06/25 09:00 History gram/dose oral powder (Gavilax) sennosides 8.6 mg tablet (senna) 17.2 mg PO BID 08/07/25 08/06/25 08:00 History tamsulosin 0.4 mg capsule 0.4 mg PO DAILY 08/07/2508/06/25 21:00 History Physical Exam Vital Signs and Narrative: Vital Signs: Last Vital Signs Temp 97.6 F 08/07/25 03:05 Pulse 109 H 08/07/25 03:05 Resp 18 08/07/25 03:05 BP 144/58 H 08/07/25 03:05 Pulse Ox 95 08/07/25 03:05 O2 Del Method Room Air 08/07/25 03:05 BMI result Body Mass Index 23.2 Const: General: cooperative, comfortable, no acute distress, alert and awake Nutritional Appearance: average body habitus Orientation/consciousness: patient oriented x3 Resp: Effort & Inspection: normal respiratory effort, able to speak in complete sentences, no respiratory distress and no use of accessory muscles Auscultation: clear to auscultation bilaterally Cardio: Rate: regular rate Neuro: General: patient oriented x3, moves all extremities and CN's II-XI intact bilaterally Results Labs Labs: Laboratory Results - last 24 hr 08/07/25 08/07/25 03:48 08:02 POC Glucose 175 H 153 H Assessment and Plan (1) Urinary retention: Status: Acute Plan This is a 45-year-old male with history of diabetes, hyperlipidemia, recent UTI, urinary retention with Freitas catheter removed August 05 admitted to inpatient psych floor due to SI Urinary retention s/p freitas catheter which was removed at outside hospital on 08/05 check bladder scan, straight cath parameters continue baseline flomax, proscar on multiple meds that could contribute may need urology evaluation depending on clinical course T2DM Hba1c 6.2 at outside hospital follow POCs per unit protocol, recommend diabetic diet continue baseline metformin, glipizide, lantus HLD continue statin Thank you for allowing us to participate in the care of this patient. There are no acute medical issues at this time. Feel free to consult if anything acute arises.
[2025-08-07 12:21] LABS: MANUAL DIFF FLAG NO
[2025-08-07 12:23] LABS: Hematocrit 39.6 % (42.0-52.0); Hemoglobin 13.1 g/dl (14.0-18.0); Imm Gran Abs Auto 0.03 X10*3/uL (0.00-0.03); Imm Gran Pct Auto 0.3 % (0.0-0.4); Lymphocytes Absolute Auto 1.5 X10*3/uL (1.2-4.9); Mean Corpuscular HGB Conc 33.1 g/dl (31.0-36.0); Mean Corpuscular Hemoglobin 29.4 pg (27.0-33.0); Mean Corpuscular Volume 88.8 fL (80.0-98.0); NRBC Abs Auto 0.000 X10*3/uL (0.0-0.012); NRBC Pct Auto 0.0 /100WBC (0.0-0.2); Platelet Count 285 X10*3/uL (160-400); Red Blood Count 4.46 X10*6/uL (4.60-5.80); White Blood Count 9.8 X10*3/uL (4.8-10.8)
[2025-08-07 12:39] LABS: Creatinine Clr Calc Pharmacy 103.9; Estimated Glomerular Filt Rate > 60
[2025-08-07 12:47] LABS: Alanine Aminotransferase 22 U/L (0-40); Albumin Level 4.7 g/dL (3.5-5.0); Alkaline Phosphatase 102 U/L (39-117); Anion Gap 14 (12-20); Aspartate Amino Transferase 27 U/L (5-37); Blood Urea Nitrogen 9 mg/dL (9-16); Calcium 9.6 mg/dL (8.4-10.2); Carbon Dioxide 29 mmol/L (22-29); Chloride 100 mmol/L (96-108); Cholesterol 198 mg/dL (<200); Creatinine Clr Calc Pharmacy 103.9; Estimated Glomerular Filt Rate > 60; HDL Cholesterol 48 mg/dL (>40); Potassium 3.8 mmol/L (3.3-5.1); Sodium 139 mmol/L (135-145); Total Protein 7.2 g/dL (6.5-8.0); Triglycerides 198 mg/dL (<150)
[2025-08-07 13:27] LABS: Vitamin B12 > 2000 pg/mL (200-900)
[2025-08-07 13:48] LABS: Folate 5.6 ng/mL (> or = 4.0)
[2025-08-07 20:00] VITALS: BP 111/74; PULSE 91; RESP 16; TEMP 36.3; O2SAT 99
[2025-08-07 20:24] LABS: Glucose, Whole Blood 138 mg/dL (60-115)
[2025-08-07] MEDS: Insulin Glargine,Hum.rec.anlog 100 UNIT/ML 10 ML VIAL 16 UNIT SUBCUT (20:44)
--- NOTE | 2025-08-08 06:03 | P.PNPSI_ITS ---
Subjective Subjective Date of Service: 08/08/25 Reason For Visit: Schizoaffective D/O & PTSD Subjective Notes: Conditional Voluntary Interim History: Chart reviewed. Case discussed in team. Pt reports that he's feeling better. He states that he sees fake people and hears AH, which is distressing, but zuleyma by walking away. He denies SI/violent ideation. Denies med SE. Reports good sleep/appetite. P- Continue current tx plan Medication Compliance: Yes Diagnostics Vital Signs (24Hr): Vital Signs - 24 hr 08/07/25 09:10 08/07/25 20:00 Temperature 97.7 F 97.3 F Pulse Rate 89 91 Respiratory Rate 14 16 Blood Pressure 109/72 111/74 Pulse Oximetry 98 99 Oxygen Delivery Method Room Air Room Air BMI result Body Mass Index 23.3 Labs 08/07/25 12:07 08/07/25 12:07 Labs: Laboratory Results - last 48 hr 08/07/25 08/07/25 08/07/25 03:48 08:02 12:07 WBC 9.8 RBC 4.46 L Hgb 13.1 L Hct 39.6 L MCV 88.8 MCH 29.4 MCHC 33.1 RDW 13.2 Plt Count 285 MPV 9.3 L Immature Gran % (Auto) 0.3 Neut % (Auto) 78.3 H Lymph % (Auto) 15.5 L [place] % (Auto) 5.6 Eos % (Auto) 0.1 Baso % (Auto) 0.2 Lymph # (Auto) 1.5 [place] # (Auto) 0.6 Eos # (Auto) 0.0 Baso # (Auto) 0.0 Abs Immat Gran (auto) 0.03 Absolute Neuts (auto) Cancelled Absolute Nucleated RBC Nucleated RBC % (auto) Sodium Potassium Chloride Carbon Dioxide Anion Gap BUN Creatinine Estim Creat Clear Calc Estimated GFR POC Glucose 175 H 153 H Random Glucose Estimat Average Glucose Hemoglobin A1c % Calcium Total Bilirubin AST ALT Alkaline Phosphatase Total Protein Albumin Triglycerides Cholesterol LDL Cholesterol, Calc HDL Cholesterol Vitamin B12 Folate TSH 08/07/25 08/07/25 08/07/25 12:07 12:07 12:07 WBC RBC Hgb Hct MCV MCH MCHC RDW Plt Count MPV Immature Gran % (Auto) Neut % (Auto) Lymph % (Auto) [place] % (Auto) Eos % (Auto) Baso % (Auto) Lymph # (Auto) [place] # (Auto) Eos # (Auto) Baso # (Auto) Abs Immat Gran (auto) Absolute Neuts (auto) 7.6 Absolute Nucleated RBC 0.000 Nucleated RBC % (auto) 0.0 Sodium 139 Potassium 3.8 Chloride 100 Carbon Dioxide 29 Anion Gap 14 BUN 9 Creatinine 0.85 0.85 Estim Creat Clear Calc 103.9 103.9 Estimated GFR > 60 POC Glucose Random Glucose Estimat Average Glucose Hemoglobin A1c % Calcium Total Bilirubin AST ALT Alkaline Phosphatase Total Protein Albumin Triglycerides Cholesterol LDL Cholesterol, Calc HDL Cholesterol Vitamin B12 Folate TSH 08/07/25 08/07/25 12:07 19:53 WBC RBC Hgb Hct MCV MCH MCHC RDW Plt Count MPV Immature Gran % (Auto) Neut % (Auto) Lymph % (Auto) [place] % (Auto) Eos % (Auto) Baso % (Auto) Lymph # (Auto) [place] # (Auto) Eos # (Auto) Baso # (Auto) Abs Immat Gran (auto) Absolute Neuts (auto) Absolute Nucleated RBC Nucleated RBC % (auto) Sodium Potassium Chloride Carbon Dioxide Anion Gap BUN Creatinine Estim Creat Clear Calc Estimated GFR > 60 POC Glucose 138 H Random Glucose 154 H Estimat Average Glucose 131 Hemoglobin A1c % 6.2 H Calcium 9.6 Total Bilirubin 0.3 AST 27 ALT 22 Alkaline Phosphatase 102 Total Protein 7.2 Albumin 4.7 Triglycerides 198 H Cholesterol 198 LDL Cholesterol, Calc 111 H HDL Cholesterol 48 Vitamin B12 > 2000 H Folate 5.6 TSH 2.44 Medications Medications Current Medications Acetaminophen (Acetaminophen 325 Mg Tablet) 650 mg PO Q6H PRN PRN Reason: Headache/Pain, Scale 1-10 Last Admin: 08/07/25 20:45 Dose: 650 mg Al Hydroxide/Mg Hydroxide (Magnesium Hydrox/Alum Hydrox 30 Ml Oral.Susp) 30 ml PO Q6H PRN PRN Reason: Heartburn/Nausea Aripiprazole (Aripiprazole 20 Mg Tablet) 20 mg PO DAILY [facility] Last Admin: 08/07/25 09:22 Dose: 20 mg Atorvastatin Calcium (Atorvastatin Calcium 20 Mg Tablet) 20 mg PO DAILY [facility] Last Admin: 08/07/25 09:22 Dose: 20 mg Benztropine Mesylate (Benztropine Mesylate 1 Mg Tablet) 1 mg PO BID [facility] Last Admin: 08/07/25 20:45 Dose: 1 mg Clozapine 100 mg/ Clozapine 50 (mg) 150 mg PO BEDTIME [facility] Last Admin: 08/07/25 20:45 Dose: 150 mg Cyanocobalamin (Cyanocobalamin (Vitamin B-12) 1,000 Mcg Tablet) 1,000 mcg PO DAILY [facility] Last Admin: 08/07/25 09:22 Dose: 1,000 mcg Finasteride (Finasteride 5 Mg Tablet) 5 mg PO DAILY [facility] Last Admin: 08/07/25 09:21 Dose: 5 mg Glipizide (Glipizide 10 Mg Tablet) 10 mg PO DAILY [facility] Last Admin: 08/07/25 09:23 Dose: 10 mg Hydroxyzine HCl (Hydroxyzine Hcl 25 Mg Tablet) 25 mg PO Q6H PRN PRN Reason: mild anxiety Insulin Glargine (Insulin Glargine,Hum.Rec.Anlog 100 Unit/Ml 10 Ml Vial) 16 unit SUBCUT BEDTIME [facility] Last Admin: 08/07/25 20:44 Dose: 16 unit Magnesium Hydroxide (Milk Of Magnesia 30 Ml Oral.Susp) 30 ml PO DAILY PRN PRN Reason: Constipation Melatonin (Melatonin 3 Mg Tablet) 3 mg PO BEDTIME PRN PRN Reason: Insomnia Metformin HCl (Metformin Hcl 500 Mg Tablet) 500 mg PO BIDWM [facility] Last Admin: 08/07/25 17:22 Dose: 500 mg Nicotine Polacrilex (Nicotine Polacrilex 2 Mg Gum) 2 mg BUCCAL Q2H PRN PRN Reason: Nicotine Cravings Polyethylene Glycol (Polyethylene Glycol 3350 17 Gm Powd.Pack) 17 gm PO DAILY PRN PRN Reason: Constipation Senna/Docusate Sodium (Sennosides/Docusate Sodium Tablet) 1 tab PO BID [facility] Last Admin: 08/07/25 20:45 Dose: 1 tab Tamsulosin HCl (Tamsulosin Hcl 0.4 Mg Capsule) 0.4 mg PO DAILY [facility] Last Admin: 08/07/25 09:21 Dose: 0.4 mg Trazodone HCl (Trazodone Hcl 50 Mg Tablet) 50 mg PO BEDTIME MRX1 PRN PRN Reason: Insomnia Vitamin D (Cholecalciferol (Vitamin D3) 25 Mcg Tablet) 50 mcg PO DAILY [facility] Last Admin: 08/07/25 09:23 Dose: 50 mcg Allergies Allergies Allergy/AdvReac Type Severity Reaction Status Date / Time aloe vera AdvReac Hives Verified 08/07/25 04:24 Assessment & Plan Assessment & Plan (1) Schizophrenia: Status: Acute Code(s): F20.9 - Schizophrenia, unspecified Plan Mr. Montelongo is a 45 year-old male with hx of schizophrenia who initially was brought by his brother to [facility] ED due to presenting as more confused and not interacting as much. He was medically admitted for AMS. He was treated for urinary retention, freitas came out on 08/05/2025- we will continue bladder scans to make sure retention is not ongoing. He also had constipation which seems to have resolved. He is currently on senna and miralax regimen. He was also restarted on clozapine which he had stopped days prior to presenting to ED. He currently does not present with acute symptoms. He reports at baseline some VH/AH. He does not present with overt delusional content. He has agreed to continue medications. He also denies SI/HI. Note he does have significant hx of suicide attempts as well as strong family hx of completed suicide (sister) and brother as also attempted suicide. He has supports in the community from his OP psychiatrist, Dr. Josh Bean (pending collateral information) and VNA through [facility] ([phone]). PLAN 1. admit to [facility], CV, 15 minutes checks for safety 2. will check clozapine levels on 08/07 prior to night time dose. continue abilify 20mg po daily which was increased from 15mg to 20 at prior hospital. 3. continue bladder scan x 2 days. straigh cath if residual>500cc, may need to see urology. 4. obtain collateral information 5. aftercare planning. Time Spent With Patient Time: Total time managing care of this patient today ____ minutes.
[2025-08-08 07:35] LABS: Glucose, Whole Blood 100 mg/dL (60-115)
[2025-08-08 08:00] VITALS: BP 135/81; PULSE 95; RESP 18; TEMP 36.3; O2SAT 98
[2025-08-08] MEDS: Milk of Magnesia 30 ML ORAL.SUSP PO (16:44)
[2025-08-08 21:23] VITALS: BP 95/59; PULSE 88; RESP 14; TEMP 36.4; O2SAT 95
[2025-08-08] MEDS: Insulin Glargine,Hum.rec.anlog 100 UNIT/ML 10 ML VIAL 16 UNIT SUBCUT (21:29)
[2025-08-08 21:39] LABS: Glucose, Whole Blood 182 mg/dL (60-115)
[2025-08-09 07:29] LABS: Glucose, Whole Blood 140 mg/dL (60-115)
[2025-08-09 07:30] VITALS: BP 113/68; PULSE 95; RESP 14; TEMP 36.2; O2SAT 99
--- NOTE | 2025-08-09 14:15 | P.PNPSI_ITS ---
Subjective Subjective Date of Service: 08/09/25 Reason For Visit: Schizoaffective D/O & PTSD Subjective Notes: Conditional Voluntary Interim History: Pt slept through the night. He reports voices are tormenting him, telling to hurt himself, repeatedly. He states they don't stop. He does report the is not planning to hurt himself. He also reports constipation. His bladder scans- have been zero, PVR. d/c bladder scans. No SI/HI. Review of Systems Review of Systems No chest pain. No SOB. No abdominal pain. reports last BM yesterday. Yes all other systems are reviewed and are negative Constitutional: Denies chills and Denies fever(s) Cardiovascular: Denies chest pain, Denies palpitations and Denies dyspnea Respiratory: Reports cough and Denies dyspnea Endocrine: Denies palpitations Mental Status Exam Mental Status Exam Narrative: Appearance: wearing hospital gown, fair hygiene, in NAD Behavior: cooperative Psychomotor: no agitation or retardation noted Speech: clear, normal rate/rhythm/volume, spontaneous TP: linear TC: feeling better Mood: not good Affect: anxious SI: denies HI: denies VH/AH: CAH to hurt himself. Delusions: no overt delusional content reported Insight/judgment: fair x 2. Memory/cog: alert, oriented x 3. Diagnostics Vital Signs (24Hr): Vital Signs - 24 hr 08/08/25 21:23 08/09/25 07:30 Temperature 97.5 F 97.2 F Pulse Rate 88 95 Respiratory Rate 14 14 Blood Pressure 95/59 L 113/68 Pulse Oximetry 95 99 Oxygen Delivery Method Room Air Room Air BMI result Body Mass Index 23.3 Labs 08/07/25 12:07 08/07/25 12:07 Labs: Laboratory Results - last 48 hr 08/07/25 08/08/25 08/08/25 19:53 07:25 21:28 POC Glucose 138 H 100 182 H 08/09/25 07:22 POC Glucose 140 H Medications Medications Current Medications Acetaminophen (Acetaminophen 325 Mg Tablet) 650 mg PO Q6H PRN PRN Reason: Headache/Pain, Scale 1-10 Last Admin: 08/07/25 20:45 Dose: 650 mg Al Hydroxide/Mg Hydroxide (Magnesium Hydrox/Alum Hydrox 30 Ml Oral.Susp) 30 ml PO Q6H PRN PRN Reason: Heartburn/Nausea Aripiprazole (Aripiprazole 20 Mg Tablet) 20 mg PO DAILY [facility] Last Admin: 08/09/25 09:15 Dose: 20 mg Atorvastatin Calcium (Atorvastatin Calcium 20 Mg Tablet) 20 mg PO DAILY [facility] Last Admin: 08/09/25 09:15 Dose: 20 mg Clozapine 100 mg/ Clozapine 50 (mg) 150 mg PO BEDTIME [facility] Last Admin: 08/08/25 21:29 Dose: 150 mg Clozapine (Clozapine 25 Mg Tablet) 50 mg PO DAILY [facility] Cyanocobalamin (Cyanocobalamin (Vitamin B-12) 1,000 Mcg Tablet) 1,000 mcg PO DAILY [facility] Last Admin: 08/09/25 09:15 Dose: 1,000 mcg Finasteride (Finasteride 5 Mg Tablet) 5 mg PO DAILY [facility] Last Admin: 08/09/25 09:14 Dose: 5 mg Glipizide (Glipizide 10 Mg Tablet) 10 mg PO DAILY [facility] Last Admin: 08/09/25 09:15 Dose: 10 mg Hydroxyzine HCl (Hydroxyzine Hcl 25 Mg Tablet) 25 mg PO Q6H PRN PRN Reason: mild anxiety Insulin Glargine (Insulin Glargine,Hum.Rec.Anlog 100 Unit/Ml 10 Ml Vial) 16 unit SUBCUT BEDTIME [facility] Last Admin: 08/08/25 21:29 Dose: 16 unit Lactulose (Lactulose 20 Gm/30 Ml Solution) 20 gm PO BID PRN PRN Reason: Constipation Last Admin: 08/09/25 10:40 Dose: 20 gm Magnesium Hydroxide (Milk Of Magnesia 30 Ml Oral.Susp) 30 ml PO DAILY PRN PRN Reason: Constipation Last Admin: 08/08/25 16:44 Dose: 30 ml Melatonin (Melatonin 3 Mg Tablet) 3 mg PO BEDTIME PRN PRN Reason: Insomnia Metformin HCl (Metformin Hcl 500 Mg Tablet) 500 mg PO BIDWM [facility] Last Admin: 08/09/25 09:14 Dose: 500 mg Nicotine Polacrilex (Nicotine Polacrilex 2 Mg Gum) 2 mg BUCCAL Q2H PRN PRN Reason: Nicotine Cravings Polyethylene Glycol (Polyethylene Glycol 3350 17 Gm Powd.Pack) 17 gm PO DAILY [facility] Senna/Docusate Sodium (Sennosides/Docusate Sodium Tablet) 1 tab PO BID [facility] Last Admin: 08/09/25 09:14 Dose: 1 tab Tamsulosin HCl (Tamsulosin Hcl 0.4 Mg Capsule) 0.4 mg PO DAILY [facility] Last Admin: 08/09/25 09:14 Dose: 0.4 mg Trazodone HCl (Trazodone Hcl 50 Mg Tablet) 50 mg PO BEDTIME MRX1 PRN PRN Reason: Insomnia Vitamin D (Cholecalciferol (Vitamin D3) 25 Mcg Tablet) 50 mcg PO DAILY [facility] Last Admin: 08/09/25 09:15 Dose: 50 mcg Allergies Allergies Allergy/AdvReac Type Severity Reaction Status Date / Time alchandler vera AdvReac Hives Verified 08/07/25 04:24 Assessment & Plan Assessment & Plan (1) Schizophrenia: Status: Acute Code(s): F20.9 - Schizophrenia, unspecified Plan Mr. Montelongo is a 45 year-old male with hx of schizophrenia who initially was brought by his brother to [facility] ED due to presenting as more confused and not interacting as much. He was medically admitted for AMS. He was treated for urinary retention, zena came out on 08/05/2025- we will continue bladder scans to make sure retention is not ongoing. He also had constipation which seems to have resolved. He is currently on senna and miralax regimen. He was also restarted on clozapine which he had stopped days prior to presenting to ED. He currently does not present with acute symptoms. He reports at baseline some VH/AH. He does not present with overt delusional content. He has agreed to continue medications. He also denies SI/HI. Note he does have significant hx of suicide attempts as well as strong family hx of completed suicide (sister) and brother as also attempted suicide. He has supports in the community from his OP psychiatrist, Dr. Josh Bean (pending collateral information) and VNA through [facility] ([phone]). PLAN 08/09 reports increase CAH, no plan or intent to harm self. increase clozapine 25mg po daily, continue 150mg po qhs, will increase tomorrow am dose to 50mg po daily and 150mg po qhs. added miralax, lactulose for constipation. he already has sennakot. avoid bulk agents. bladder scans d/c PVR zero since admission. Reason for continued inpatient stay Substantial Risk for: inability to function Time Spent With Patient Time: Total time managing care of this patient today ____ minutes.
[2025-08-09 20:00] VITALS: BP 114/73; PULSE 85; RESP 16; TEMP 36.5; O2SAT 100
[2025-08-09] MEDS: Insulin Glargine,Hum.rec.anlog 100 UNIT/ML 10 ML VIAL 16 UNIT SUBCUT (21:13)
[2025-08-10 07:42] VITALS: BP 101/57; PULSE 84; RESP 20; TEMP 36.2; O2SAT 98
[2025-08-10 07:51] LABS: Glucose, Whole Blood 96 mg/dL (60-115)
[2025-08-10 19:48] VITALS: BP 101/70; PULSE 96; RESP 16; TEMP 36.3; O2SAT 99
--- NOTE | 2025-08-10 20:41 | P.PNPSI_ITS ---
Subjective Subjective Date of Service: 08/10/25 Reason For Visit: Schizoaffective D/O & PTSD Subjective Notes: Conditional Voluntary Interim History: Pt slept through the night. He continues to report voices are tormenting him, telling to hurt himself, repeatedly. He states they don't stop. He does report the is not planning to hurt himself. No SI/HI. pt reports he had BM- constipation seems to be improving. Mental Status Exam Mental Status Exam Narrative: Appearance: wearing hospital gown, fair hygiene, in NAD Behavior: cooperative Psychomotor: no agitation or retardation noted Speech: clear, normal rate/rhythm/volume, spontaneous TP: linear TC: feeling better Mood: not good Affect: anxious SI: denies HI: denies VH/AH: CAH to hurt himself. Delusions: no overt delusional content reported Insight/judgment: fair x 2. Memory/cog: alert, oriented x 3. Diagnostics Vital Signs (24Hr): Vital Signs - 24 hr 08/10/25 07:42 08/10/25 19:48 Temperature 97.1 F 97.4 F Pulse Rate 84 96 Respiratory Rate 20 16 Blood Pressure 101/57 L 101/70 Pulse Oximetry 98 99 Oxygen Delivery Method Room Air Room Air BMI result Body Mass Index 23.3 Labs 08/07/25 12:07 08/07/25 12:07 Labs: Laboratory Results - last 48 hr 08/08/25 08/09/25 08/10/25 21:28 07:22 07:44 POC Glucose 182 H 140 H 96 Medications Medications Current Medications Acetaminophen (Acetaminophen 325 Mg Tablet) 650 mg PO Q6H PRN PRN Reason: Headache/Pain, Scale 1-10 Last Admin: 08/07/25 20:45 Dose: 650 mg Al Hydroxide/Mg Hydroxide (Magnesium Hydrox/Alum Hydrox 30 Ml Oral.Susp) 30 ml PO Q6H PRN PRN Reason: Heartburn/Nausea Aripiprazole (Aripiprazole 20 Mg Tablet) 20 mg PO DAILY [facility] Last Admin: 08/10/25 08:25 Dose: 20 mg Atorvastatin Calcium (Atorvastatin Calcium 20 Mg Tablet) 20 mg PO DAILY [facility] Last Admin: 08/10/25 08:25 Dose: 20 mg Clozapine 100 mg/ Clozapine 50 (mg) 150 mg PO BEDTIME [facility] Last Admin: 11/29/25 21:12 Dose: 150 mg Clozapine (Clozapine 25 Mg Tablet) 50 mg PO DAILY [facility] Last Admin: 08/10/25 08:25 Dose: 50 mg Cyanocobalamin (Cyanocobalamin (Vitamin B-12) 1,000 Mcg Tablet) 1,000 mcg PO DAILY [facility] Last Admin: 08/10/25 08:26 Dose: 1,000 mcg Finasteride (Finasteride 5 Mg Tablet) 5 mg PO DAILY [facility] Last Admin: 08/10/25 08:25 Dose: 5 mg Glipizide (Glipizide 10 Mg Tablet) 10 mg PO DAILY [facility] Last Admin: 08/10/25 08:26 Dose: 10 mg Hydroxyzine HCl (Hydroxyzine Hcl 25 Mg Tablet) 25 mg PO Q6H PRN PRN Reason: mild anxiety Insulin Glargine (Insulin Glargine,Hum.Rec.Anlog 100 Unit/Ml 10 Ml Vial) 16 unit SUBCUT BEDTIME [facility] Last Admin: 08/09/25 21:13 Dose: 16 unit Lactulose (Lactulose 20 Gm/30 Ml Solution) 20 gm PO BID PRN PRN Reason: Constipation Last Admin: 08/09/25 10:40 Dose: 20 gm Magnesium Hydroxide (Milk Of Magnesia 30 Ml Oral.Susp) 30 ml PO DAILY PRN PRN Reason: Constipation Last Admin: 08/08/25 16:44 Dose: 30 ml Melatonin (Melatonin 3 Mg Tablet) 3 mg PO BEDTIME PRN PRN Reason: Insomnia Metformin HCl (Metformin Hcl 500 Mg Tablet) 500 mg PO BIDWM [facility] Last Admin: 08/10/25 16:56 Dose: 500 mg Nicotine Polacrilex (Nicotine Polacrilex 2 Mg Gum) 2 mg BUCCAL Q2H PRN PRN Reason: Nicotine Cravings Polyethylene Glycol (Polyethylene Glycol 3350 17 Gm Powd.Pack) 17 gm PO DAILY [facility] Last Admin: 08/10/25 08:24 Dose: 17 gm Senna/Docusate Sodium (Sennosides/Docusate Sodium Tablet) 1 tab PO BID [facility] Last Admin: 08/10/25 08:26 Dose: 1 tab Tamsulosin HCl (Tamsulosin Hcl 0.4 Mg Capsule) 0.4 mg PO DAILY [facility] Last Admin: 08/10/25 08:25 Dose: 0.4 mg Trazodone HCl (Trazodone Hcl 50 Mg Tablet) 50 mg PO BEDTIME MRX1 PRN PRN Reason: Insomnia Vitamin D (Cholecalciferol (Vitamin D3) 25 Mcg Tablet) 50 mcg PO DAILY [facility] Last Admin: 08/10/25 08:25 Dose: 50 mcg Allergies Allergies Allergy/AdvReac Type Severity Reaction Status Date / Time michael castro AdvReac Hives Verified 08/07/25 04:24 Assessment & Plan Assessment & Plan (1) Schizophrenia: Status: Acute Code(s): F20.9 - Schizophrenia, unspecified Plan Mr. Montelongo is a 45 year-old male with hx of schizophrenia who initially was brought by his brother to [facility] ED due to presenting as more confused and not interacting as much. He was medically admitted for AMS. He was treated for urinary retention, zena came out on 08/05/2025- we will continue bladder scans to make sure retention is not ongoing. He also had constipation which seems to have resolved. He is currently on senna and miralax regimen. He was also restarted on clozapine which he had stopped days prior to presenting to ED. He currently does not present with acute symptoms. He reports at baseline some VH/AH. He does not present with overt delusional content. He has agreed to continue medications. He also denies SI/HI. Note he does have significant hx of suicide attempts as well as strong family hx of completed suicide (sister) and brother as also attempted suicide. He has supports in the community from his OP psychiatrist, Dr. Josh Bean (pending collateral information) and VNA through [facility] ([phone]). PLAN 08/09 reports increase CAH, no plan or intent to harm self. increase clozapine 25mg po daily, continue 150mg po qhs, will increase tomorrow am dose to 50mg po daily and 150mg po qhs. added miralax, lactulose for constipation. he already has sennakot. avoid bulk agents. bladder scans d/c PVR zero since admission. 08/10 improved constipation. continues to endorse CAH. continue clozaril 50mg po daily and 150mg po qhs. continue abilify 20mg po daily. Reason for continued inpatient stay Substantial Risk for: inability to function Time Spent With Patient Time: Total time managing care of this patient today ____ minutes.
[2025-08-10] MEDS: Insulin Glargine,Hum.rec.anlog 100 UNIT/ML 10 ML VIAL 16 UNIT SUBCUT (21:20)
[2025-08-10 22:24] LABS: Clozapine (Clozaril) 134 mcg/L
[2025-08-11 07:27] LABS: Glucose, Whole Blood 101 mg/dL (60-115)
[2025-08-11 07:59] VITALS: BP 101/64; PULSE 87; RESP 14; TEMP 36.1; O2SAT 96
--- NOTE | 2025-08-11 15:07 | PM.EVENT ---
Event Note Date of Service: 08/11/25 Event Note: Followed up on patient, patient has been voiding, he denies any dysuria, no fever or tachycardia. Patient reports that he is voiding without any issues. Time Spent With Patient Time: Total time managing care of this patient today ____ minutes.
--- NOTE | 2025-08-11 19:03 | HO.PSYCHPN ---
Subjective Subjective Date of Service: 08/11/25 Reason For Visit: Schizoaffective D/O & PTSD Subjective Notes: Conditional Voluntary Interim History: Chart reviewed. Case discussed with tx team Pt reports I'm feeling good, better when than when I came in . He reports that he had been seeing animals and hearing voices of people I don't know telling me to harm myself . He reports that he still experienced this today but it's been less bothersome, easier to ignore and he walks away when it happens. Reports sleepin ~6 hrs/night. Denies SI/violent ideation Had last bm this am Visible in milieu no behavioral issues. appropriate w/ staff and peers Medication Compliance: Yes Side effects from medications: No Mental Status Exam Mental Status Exam Narrative: Appearance: wearing hospital gown, fair hygiene Behavior: cooperative Psychomotor: calm, wnl. steady gait Speech: clear, normal rate/rhythm/volume, spontaneous TP: linear TC: Denies SI/violent ideation Mood: as noted above Affect: appropriate, generally bright Perception- denies current AHVH and does not appear to respond to internal stimuli Insight- fair Judgment-generally intact A/O x 3 Diagnostics Vital Signs (24Hr): Vital Signs - 24 hr 08/10/25 19:48 08/11/25 07:59 Temperature 97.4 F 97.0 F Pulse Rate 96 87 Respiratory Rate 16 14 Blood Pressure 101/70 101/64 Pulse Oximetry 99 96 Oxygen Delivery Method Room Air Room Air BMI result Body Mass Index 23.3 Labs 08/07/25 12:07 08/07/25 12:07 Labs: Laboratory Results - last 48 hr 08/07/25 08/10/25 08/11/25 18:37 07:44 07:20 POC Glucose 96 101 Clozapine 134 Norclozapine 100 Medications Medications Current Medications Acetaminophen (Acetaminophen 325 Mg Tablet) 650 mg PO Q6H PRN PRN Reason: Headache/Pain, Scale 1-10 Last Admin: 08/10/25 21:32 Dose: 650 mg Al Hydroxide/Mg Hydroxide (Magnesium Hydrox/Alum Hydrox 30 Ml Oral.Susp) 30 ml PO Q6H PRN PRN Reason: Heartburn/Nausea Aripiprazole (Aripiprazole 20 Mg Tablet) 20 mg PO DAILY [facility] Last Admin: 08/11/25 08:17 Dose: 20 mg Atorvastatin Calcium (Atorvastatin Calcium 20 Mg Tablet) 20 mg PO DAILY [facility] Last Admin: 08/11/25 08:17 Dose: 20 mg Clozapine 100 mg/ Clozapine 50 (mg) 150 mg PO BEDTIME [facility] Last Admin: 08/10/25 21:20 Dose: 150 mg Clozapine (Clozapine 25 Mg Tablet) 50 mg PO DAILY [facility] Last Admin: 08/11/25 08:17 Dose: 50 mg Cyanocobalamin (Cyanocobalamin (Vitamin B-12) 1,000 Mcg Tablet) 1,000 mcg PO DAILY [facility] Last Admin: 08/11/25 08:17 Dose: 1,000 mcg Finasteride (Finasteride 5 Mg Tablet) 5 mg PO DAILY [facility] Last Admin: 08/11/25 08:17 Dose: 5 mg Glipizide (Glipizide 10 Mg Tablet) 10 mg PO DAILY [facility] Last Admin: 08/11/25 08:17 Dose: 10 mg Hydroxyzine HCl (Hydroxyzine Hcl 25 Mg Tablet) 25 mg PO Q6H PRN PRN Reason: mild anxiety Insulin Glargine (Insulin Glargine,Hum.Rec.Anlog 100 Unit/Ml 10 Ml Vial) 16 unit SUBCUT BEDTIME [facility] Last Admin: 08/10/25 21:20 Dose: 16 unit Lactulose (Lactulose 20 Gm/30 Ml Solution) 20 gm PO BID PRN PRN Reason: Constipation Last Admin: 08/09/25 10:40 Dose: 20 gm Magnesium Hydroxide (Milk Of Magnesia 30 Ml Oral.Susp) 30 ml PO DAILY PRN PRN Reason: Constipation Last Admin: 08/08/25 16:44 Dose: 30 ml Melatonin (Melatonin 3 Mg Tablet) 3 mg PO BEDTIME PRN PRN Reason: Insomnia Metformin HCl (Metformin Hcl 500 Mg Tablet) 500 mg PO BIDWM [facility] Last Admin: 08/11/25 16:57 Dose: 500 mg Nicotine Polacrilex (Nicotine Polacrilex 2 Mg Gum) 2 mg BUCCAL Q2H PRN PRN Reason: Nicotine Cravings Polyethylene Glycol (Polyethylene Glycol 3350 17 Gm Powd.Pack) 17 gm PO DAILY [facility] Last Admin: 08/11/25 08:17 Dose: 17 gm Senna/Docusate Sodium (Sennosides/Docusate Sodium Tablet) 1 tab PO BID [facility] Last Admin: 08/11/25 08:47 Dose: 1 tab Tamsulosin HCl (Tamsulosin Hcl 0.4 Mg Capsule) 0.4 mg PO DAILY [facility] Last Admin: 08/11/25 08:17 Dose: 0.4 mg Trazodone HCl (Trazodone Hcl 50 Mg Tablet) 50 mg PO BEDTIME MRX1 PRN PRN Reason: Insomnia Vitamin D (Cholecalciferol (Vitamin D3) 25 Mcg Tablet) 50 mcg PO DAILY [facility] Last Admin: 08/11/25 08:17 Dose: 50 mcg Allergies Allergies Allergy/AdvReac Type Severity Reaction Status Date / Time aloe vera AdvReac Hives Verified 08/07/25 04:24 Assessment & Plan Assessment & Plan (1) Schizophrenia: Status: Acute Code(s): F20.9 - Schizophrenia, unspecified Plan Mr. Montelongo is a 45 year-old male with hx of schizophrenia who initially was brought by his brother to [facility] ED due to presenting as more confused and not interacting as much. He was medically admitted for AMS. He was treated for urinary retention, freitas came out on 08/05/2025- we will continue bladder scans to make sure retention is not ongoing. He also had constipation which seems to have resolved. He is currently on senna and miralax regimen. He was also restarted on clozapine which he had stopped days prior to presenting to ED. He currently does not present with acute symptoms. He reports at baseline some VH/AH. He does not present with overt delusional content. He has agreed to continue medications. He also denies SI/HI. Note he does have significant hx of suicide attempts as well as strong family hx of completed suicide (sister) and brother as also attempted suicide. He has supports in the community from his OP psychiatrist, Dr. Josh Bean (pending collateral information) and [facility] ([phone]). PLAN 08/09 reports increase CAH, no plan or intent to harm self. increase clozapine 25mg po daily, continue 150mg po qhs, will increase tomorrow am dose to 50mg po daily and 150mg po qhs. added miralax, lactulose for constipation. he already has sennakot. avoid bulk agents. bladder scans d/c PVR zero since admission. 08/10 improved constipation. continues to endorse CAH. continue clozaril 50mg po daily and 150mg po qhs. continue abilify 20mg po daily. 08/11: Sx have improved. Tolerating clozapine titration. Had BM today. Continue current tx plan Patient educated on: medication risk/benefits and therapeutic strategies Informed Consent: understands Reason for continued inpatient stay Substantial Risk for: med/psych decompensation Time Spent With Patient Time: Total time managing care of this patient today ____ minutes.
[2025-08-11 20:05] VITALS: BP 109/65; PULSE 95; RESP 18; TEMP 35.7; O2SAT 97
[2025-08-11 22:18] LABS: Glucose, Whole Blood 137 mg/dL (60-115)
[2025-08-11] MEDS: Insulin Glargine,Hum.rec.anlog 100 UNIT/ML 10 ML VIAL 16 UNIT SUBCUT (22:39)
[2025-08-12 08:00] VITALS: BP 111/70; PULSE 90; RESP 16; O2SAT 96
[2025-08-12 08:05] LABS: Glucose, Whole Blood 122 mg/dL (60-115)
--- NOTE | 2025-08-12 09:37 | PC.NURSE ---
08/12/25 pt declined flu shot
--- NOTE | 2025-08-12 15:47 | HO.PSYCHPN ---
Subjective Subjective Date of Service: 08/12/25 Reason For Visit: Schizoaffective D/O & PTSD Subjective Notes: Conditional Voluntary Interim History: Chart reviewed. Case discussed in team Pt reports that he's doing 'okay'. 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 He reports having hallucinations of his grandparents today telling him he's going to be okay, which was comforting. He also had hallucinations of two children that he didn't recognize who told him to hurt himself. He denies SI and states that he doesn't want to hurt himself or others. He can tell these are hallucinations b/c they disappear when he walks away. He is agreeable w/ titrating the clozapine tonight. He reports good sleep /appetite Had BM this am Denies any physical concerns Medication Compliance: Yes Mental Status Exam Mental Status Exam Narrative: Appearance: wearing hospital gown, fair hygiene Behavior: cooperative Psychomotor: calm, wnl. steady gait Speech: clear, normal rate/rhythm/volume, spontaneous Thought process: Goal directed Thought Content: Denies SI/violent ideation Mood: 'okay' Affect: generally blunted but brightens up at times Perception- denies current AHVH and does not appear to respond to internal stimuli Insight- intact Judgment-generally intact A/O x 3 Diagnostics Vital Signs (24Hr): Vital Signs - 24 hr 08/11/25 20:05 08/12/25 08:00 Temperature 96.2 F L Pulse Rate 95 90 Respiratory Rate 18 16 Blood Pressure 109/65 111/70 Pulse Oximetry 97 96 Oxygen Delivery Method Room Air Room Air BMI result Body Mass Index 23.3 Labs 08/07/25 12:07 08/07/25 12:07 Labs: Laboratory Results - last 48 hr 08/07/25 08/11/25 08/11/25 18:37 07:20 22:14 POC Glucose 101 137 H Clozapine 134 Norclozapine 100 08/12/25 08:00 POC Glucose 122 H Clozapine Norclozapine Medications Medications Current Medications Acetaminophen (Acetaminophen 325 Mg Tablet) 650 mg PO Q6H PRN PRN Reason: Headache/Pain, Scale 1-10 Last Admin: 08/12/25 13:31 Dose: 650 mg Al Hydroxide/Mg Hydroxide (Magnesium Hydrox/Alum Hydrox 30 Ml Oral.Susp) 30 ml PO Q6H PRN PRN Reason: Heartburn/Nausea Aripiprazole (Aripiprazole 20 Mg Tablet) 20 mg PO DAILY [facility] Last Admin: 08/12/25 08:31 Dose: 20 mg Atorvastatin Calcium (Atorvastatin Calcium 20 Mg Tablet) 20 mg PO DAILY [facility] Last Admin: 08/12/25 08:29 Dose: 20 mg Clozapine (Clozapine 25 Mg Tablet) 50 mg PO DAILY [facility] Last Admin: 08/12/25 08:30 Dose: 50 mg Cyanocobalamin (Cyanocobalamin (Vitamin B-12) 1,000 Mcg Tablet) 1,000 mcg PO DAILY [facility] Last Admin: 08/12/25 08:30 Dose: 1,000 mcg Finasteride (Finasteride 5 Mg Tablet) 5 mg PO DAILY [facility] Last Admin: 08/12/25 08:31 Dose: 5 mg Glipizide (Glipizide 10 Mg Tablet) 10 mg PO DAILY [facility] Last Admin: 08/12/25 08:29 Dose: 10 mg Hydroxyzine HCl (Hydroxyzine Hcl 25 Mg Tablet) 25 mg PO Q6H PRN PRN Reason: mild anxiety Insulin Glargine (Insulin Glargine,Hum.Rec.Anlog 100 Unit/Ml 10 Ml Vial) 16 unit SUBCUT BEDTIME [facility] Last Admin: 08/11/25 22:39 Dose: 16 unit Lactulose (Lactulose 20 Gm/30 Ml Solution) 20 gm PO BID PRN PRN Reason: Constipation Last Admin: 08/09/25 10:40 Dose: 20 gm Magnesium Hydroxide (Milk Of Magnesia 30 Ml Oral.Susp) 30 ml PO DAILY PRN PRN Reason: Constipation Last Admin: 08/08/25 16:44 Dose: 30 ml Melatonin (Melatonin 3 Mg Tablet) 3 mg PO BEDTIME PRN PRN Reason: Insomnia Metformin HCl (Metformin Hcl 500 Mg Tablet) 500 mg PO BIDWM [facility] Last Admin: 08/12/25 08:29 Dose: 500 mg Nicotine Polacrilex (Nicotine Polacrilex 2 Mg Gum) 2 mg BUCCAL Q2H PRN PRN Reason: Nicotine Cravings Polyethylene Glycol (Polyethylene Glycol 3350 17 Gm Powd.Pack) 17 gm PO DAILY [facility] Last Admin: 08/12/25 08:53 Dose: Not Given Senna/Docusate Sodium (Sennosides/Docusate Sodium Tablet) 1 tab PO BID [facility] Last Admin: 08/12/25 08:29 Dose: 1 tab Tamsulosin HCl (Tamsulosin Hcl 0.4 Mg Capsule) 0.4 mg PO DAILY [facility] Last Admin: 08/12/25 08:31 Dose: 0.4 mg Trazodone HCl (Trazodone Hcl 50 Mg Tablet) 50 mg PO BEDTIME MRX1 PRN PRN Reason: Insomnia Last Admin: 08/11/25 22:36 Dose: 50 mg Vitamin D (Cholecalciferol (Vitamin D3) 25 Mcg Tablet) 50 mcg PO DAILY [facility] Last Admin: 08/12/25 08:30 Dose: 50 mcg Allergies Allergies Allergy/AdvReac Type Severity Reaction Status Date / Time aloe vera AdvReac Hives Verified 08/07/25 04:24 Assessment & Plan Assessment & Plan (1) Schizophrenia: Status: Acute Code(s): F20.9 - Schizophrenia, unspecified Plan Mr. Montelongo is a 45 year-old male with hx of schizophrenia who initially was brought by his brother to [facility] ED due to presenting as more confused and not interacting as much. He was medically admitted for AMS. He was treated for urinary retention, zena came out on 08/05/2025- we will continue bladder scans to make sure retention is not ongoing. He also had constipation which seems to have resolved. He is currently on senna and miralax regimen. He was also restarted on clozapine which he had stopped days prior to presenting to ED. He currently does not present with acute symptoms. He reports at baseline some VH/AH. He does not present with overt delusional content. He has agreed to continue medications. He also denies SI/HI. Note he does have significant hx of suicide attempts as well as strong family hx of completed suicide (sister) and brother as also attempted suicide. He has supports in the community from his OP psychiatrist, Dr. Josh Bean (pending collateral information) and VNA through [facility] ([phone]). ANC 7.6 on 08/07/25 PLAN 08/09 reports increase CAH, no plan or intent to harm self. increase clozapine 25mg po daily, continue 150mg po qhs, will increase tomorrow am dose to 50mg po daily and 150mg po qhs. added miralax, lactulose for constipation. he already has sennakot. avoid bulk agents. bladder scans d/c PVR zero since admission. 08/10 improved constipation. continues to endorse CAH. continue clozaril 50mg po daily and 150mg po qhs. continue abilify 20mg po daily. 08/11: Sx have improved. Tolerating clozapine titration. Had BM today. Continue current tx plan 08/12: Pt denies SI. CAH are less bothersome and resolve when he walks away. He is agreeable w/ recs to titrate the clozapine to 175 mg tonight. Continue 50 mg qam and Abilfy 20 mg qd. D/C planned for Thurs Patient educated on: diagnosis, medication risk/benefits and therapeutic strategies Informed Consent: understands Reason for continued inpatient stay Substantial Risk for: med/psych decompensation Time Spent With Patient Time: Total time managing care of this patient today ____ minutes.
[2025-08-12 20:00] VITALS: BP 96/73; PULSE 108; RESP 14; TEMP 36.8; O2SAT 99
[2025-08-12] MEDS: Insulin Glargine,Hum.rec.anlog 100 UNIT/ML 10 ML VIAL 16 UNIT SUBCUT (21:18)
[2025-08-13 08:08] LABS: Glucose, Whole Blood 89 mg/dL (60-115)
[2025-08-13 08:21] VITALS: BP 116/62; PULSE 89; RESP 16; TEMP 36.6; O2SAT 97
[2025-08-13 20:00] VITALS: BP 102/66; PULSE 97; RESP 16; TEMP 36.4; O2SAT 97
[2025-08-13] MEDS: Insulin Glargine,Hum.rec.anlog 100 UNIT/ML 10 ML VIAL 16 UNIT SUBCUT (20:11)
--- NOTE | 2025-08-13 21:00 | P.PNPSI_ITS ---
Subjective Subjective Date of Service: 08/13/25 Reason For Visit: Schizoaffective D/O & PTSD Subjective Notes: Conditional Voluntary Interim History: Chart reviewed. case discussed with team Pt reports feeling better today. Denies any AH/VH today. Tolerating the increase in clozapine. Reports sleeping 7 hrs. Attending groups. No behavioral issues. Feels safe w/ plan to d/c home tomorrow Medication Compliance: Yes Mental Status Exam Mental Status Exam Narrative: Appearance: wearing hospital gown, fair hygiene Behavior: cooperative Psychomotor: calm, wnl. steady gait Speech: clear, normal rate/rhythm/volume, spontaneous Thought process: Goal directed Thought Content: Denies SI/violent ideation Mood: 'better Affect: generally blunted but brightens up at times Perception- denies current AHVH and does not appear to respond to internal stimuli Insight- intact Judgment-generally intact A/O x 3 Diagnostics Vital Signs (24Hr): Vital Signs - 24 hr 08/13/25 08:21 08/13/25 20:00 Temperature 97.9 F 97.5 F Pulse Rate 89 97 Respiratory Rate 16 16 Blood Pressure 116/62 102/66 Pulse Oximetry 97 97 Oxygen Delivery Method Room Air Room Air BMI result Body Mass Index 23.3 Labs 08/07/25 12:07 08/14/25 07:40 Labs: Laboratory Results - last 48 hr 08/11/25 08/12/25 08/13/25 22:14 08:00 08:01 POC Glucose 137 H 122 H 89 Medications Medications Current Medications Acetaminophen (Acetaminophen 325 Mg Tablet) 650 mg PO Q6H PRN PRN Reason: Headache/Pain, Scale 1-10 Last Admin: 08/12/25 13:31 Dose: 650 mg Al Hydroxide/Mg Hydroxide (Magnesium Hydrox/Alum Hydrox 30 Ml Oral.Susp) 30 ml PO Q6H PRN PRN Reason: Heartburn/Nausea Aripiprazole (Aripiprazole 20 Mg Tablet) 20 mg PO DAILY [facility] Last Admin: 08/13/25 08:27 Dose: 20 mg Atorvastatin Calcium (Atorvastatin Calcium 20 Mg Tablet) 20 mg PO DAILY [facility] Last Admin: 08/13/25 08:27 Dose: 20 mg Clozapine (Clozapine 25 Mg Tablet) 50 mg PO DAILY [facility] Last Admin: 08/13/25 08:25 Dose: 50 mg Clozapine 100 mg/ Clozapine 75 (mg) 175 mg PO BEDTIME [facility] Last Admin: 08/13/25 20:11 Dose: 175 mg Cyanocobalamin (Cyanocobalamin (Vitamin B-12) 1,000 Mcg Tablet) 1,000 mcg PO DAILY [facility] Last Admin: 08/13/25 08:27 Dose: 1,000 mcg Finasteride (Finasteride 5 Mg Tablet) 5 mg PO DAILY [facility] Last Admin: 08/13/25 08:27 Dose: 5 mg Glipizide (Glipizide 10 Mg Tablet) 10 mg PO DAILY [facility] Last Admin: 08/13/25 08:27 Dose: 10 mg Hydroxyzine HCl (Hydroxyzine Hcl 25 Mg Tablet) 25 mg PO Q6H PRN PRN Reason: mild anxiety Insulin Glargine (Insulin Glargine,Hum.Rec.Anlog 100 Unit/Ml 10 Ml Vial) 16 unit SUBCUT BEDTIME [facility] Last Admin: 08/13/25 20:11 Dose: 16 unit Lactulose (Lactulose 20 Gm/30 Ml Solution) 20 gm PO BID PRN PRN Reason: Constipation Last Admin: 08/09/25 10:40 Dose: 20 gm Magnesium Hydroxide (Milk Of Magnesia 30 Ml Oral.Susp) 30 ml PO DAILY PRN PRN Reason: Constipation Last Admin: 08/08/25 16:44 Dose: 30 ml Melatonin (Melatonin 3 Mg Tablet) 3 mg PO BEDTIME PRN PRN Reason: Insomnia Metformin HCl (Metformin Hcl 500 Mg Tablet) 500 mg PO BIDWM [facility] Last Admin: 08/13/25 18:38 Dose: 500 mg Nicotine Polacrilex (Nicotine Polacrilex 2 Mg Gum) 2 mg BUCCAL Q2H PRN PRN Reason: Nicotine Cravings Polyethylene Glycol (Polyethylene Glycol 3350 17 Gm Powd.Pack) 17 gm PO DAILY [facility] Last Admin: 08/13/25 08:42 Dose: Not Given Senna/Docusate Sodium (Sennosides/Docusate Sodium Tablet) 1 tab PO BID [facility] Last Admin: 08/13/25 20:11 Dose: 1 tab Tamsulosin HCl (Tamsulosin Hcl 0.4 Mg Capsule) 0.4 mg PO DAILY [facility] Last Admin: 08/13/25 08:28 Dose: 0.4 mg Trazodone HCl (Trazodone Hcl 50 Mg Tablet) 50 mg PO BEDTIME MRX1 PRN PRN Reason: Insomnia Last Admin: 08/11/25 22:36 Dose: 50 mg Vitamin D (Cholecalciferol (Vitamin D3) 25 Mcg Tablet) 50 mcg PO DAILY [facility] Last Admin: 08/13/25 08:28 Dose: 50 mcg Allergies Allergies Allergy/AdvReac Type Severity Reaction Status Date / Time michael castro AdvReac Hives Verified 08/07/25 04:24 Assessment & Plan Assessment & Plan (1) Schizophrenia: Status: Acute Code(s): F20.9 - Schizophrenia, unspecified Plan Mr. Montelongo is a 45 year-old male with hx of schizophrenia who initially was brought by his brother to [facility] ED due to presenting as more confused and not interacting as much. He was medically admitted for AMS. He was treated for urinary retention, zena came out on 08/05/2025- we will continue bladder scans to make sure retention is not ongoing. He also had constipation which seems to have resolved. He is currently on senna and miralax regimen. He was also restarted on clozapine which he had stopped days prior to presenting to ED. He currently does not present with acute symptoms. He reports at baseline some VH/AH. He does not present with overt delusional content. He has agreed to continue medications. He also denies SI/HI. Note he does have significant hx of suicide attempts as well as strong family hx of completed suicide (sister) and brother as also attempted suicide. He has supports in the community from his OP psychiatrist, Dr. Josh Bean (pending collateral information) and VNA through [facility] ([phone]). ANC 7.6 on 08/07/25 PLAN 08/09 reports increase CAH, no plan or intent to harm self. increase clozapine 25mg po daily, continue 150mg po qhs, will increase tomorrow am dose to 50mg po daily and 150mg po qhs. added miralax, lactulose for constipation. he already has sennakot. avoid bulk agents. bladder scans d/c PVR zero since admission. 08/10 improved constipation. continues to endorse CAH. continue clozaril 50mg po daily and 150mg po qhs. continue abilify 20mg po daily. 08/11: Sx have improved. Tolerating clozapine titration. Had BM today. Continue current tx plan 08/12: Pt denies SI. CAH are less bothersome and resolve when he walks away. He is agreeable w/ recs to titrate the clozapine to 175 mg tonight. Continue 50 mg qam and Abilfy 20 mg qd. D/C planned for , 08/14 08/13: Mood has improved. Denies AHVH, SI/violent ideation. Tolerated clozapine titration. Continue current tx plan and d/c tomorrow Patient educated on: medication risk/benefits Informed Consent: understands Reason for continued inpatient stay Substantial Risk for: stable for discharge Time Spent With Patient Time: Total time managing care of this patient today ____ minutes.
[2025-08-14 07:00] VITALS: BMI 24.1
[2025-08-14 07:47] LABS: Neut%MD 80.3 %; WBCANC 11.7 X10*3/uL
[2025-08-14 07:51] LABS: Glucose, Whole Blood 107 mg/dL (60-115)
[2025-08-14 08:00] VITALS: BP 120/78; PULSE 95; RESP 14; TEMP 36.8; O2SAT 98
[2025-08-14 08:11] LABS: Creatinine Clr Calc Pharmacy 110.4; Estimated Glomerular Filt Rate > 60
--- NOTE | 2025-08-14 09:33 | PM.PSYDC ---
DS: Providers Provider Date of Service: 08/14/25 Date of admission: 08/07/25 02:36 Date of discharge: 08/14/25 Primary care physician: Unknown Physician Attending physician on admission: Maria Luisa Desai Consults: 08/07/25 05:56 Consult to Hospitalist Routine Comment: Consulting Provider: [facility] Hospitalists Reason For Exam: admission H&P Attending physician on discharge: Maria Luisa Desai DS: Diagnosis Discharge Diagnosis (1) Schizophrenia: Status: Acute DS: Medications Discharge Medications Home Medications: Home Medications ?Medication ?Instructions ?Recorded ?Confirmed atorvastatin 20 mg tablet 20 mg PO DAILY 08/07/25 08/07/25 cyanocobalamin (vitamin B-12) 1,000 mcg PO DAILY 08/07/25 08/07/25 1,000 mcg tablet (Vitamin B-12) docusate sodium 100 mg capsule 100 mg PO BID 08/07/25 08/07/25 ferrous sulfate 325 mg (65 mg 325 mg PO DAILY 08/07/25 08/07/25 iron) tablet finasteride 5 mg tablet 5 mg PO DAILY 08/07/25 08/07/25 glipizide 10 mg tablet 10 mg PO DAILY 08/07/25 08/07/25 insulin glargine 100 unit/mL 16 unit subcut BEDTIME 08/07/25 08/07/25 subcutaneous solution (Lantus U-100 Insulin) melatonin 3 mg tablet 3 mg PO BEDTIME PRN insomnia 08/07/25 08/07/25 polyethylene glycol 3350 17 34 g PO BID 08/07/25 08/07/25 gram/dose oral powder (Gavilax) sennosides 8.6 mg tablet (senna) 17.2 mg PO BID 08/07/25 08/07/25 tamsulosin 0.4 mg capsule 0.4 mg PO DAILY 08/07/25 08/07/25 Previous Rx's ?Medication ?Instructions ?Recorded acetaminophen 325 mg tablet 650 mg (2 x 325 mg) PO Q6H PRN 08/14/25 Headache/Pain, Scale 1-10 #0 tabs aripiprazole 20 mg tablet (Abilify) 20 mg PO DAILY 30 days #30 tabs 08/14/25 cholecalciferol (vitamin D3) 25 50 mcg (2 x 25 mcg (1,000 unit)) 08/14/25 mcg (1,000 unit) tablet PO DAILY #0 tabs clozapine 100 mg tablet See Rx Instructions .Route 08/14/25 .COMPLEX 30 days #60 tabs clozapine 25 mg tablet See Rx Instructions .Route 08/14/25 .COMPLEX 30 days #30 tabs lactulose 10 gram/15 mL oral 20 g (30 mL) PO BID PRN 08/14/25 solution Constipation 30 days #1,800 mL magnesium hydroxide 400 mg/5 mL 30 ml PO DAILY PRN Constipation #0 08/14/25 oral suspension (Milk of Magnesia) mL metformin 500 mg tablet 500 mg PO BIDWM 30 days #60 tabs 08/14/25 Mental Status Exam Mental Status Exam Narrative: Appearance: casual, fair grooming, good eye contact Behavior: cooperative Psychomotor: calm. No tics, tremors or dyskinesias Speech: clear, normal rate/rhythm/volume, spontaneous Thought process: Goal directed Thought Content: Denies SI/violent ideation. Future oriented Mood: 'okay' Affect: generally blunted but brightens up at times Perception- denies current AHVH and does not appear to respond to internal stimuli Insight- intact Judgment-generally intact A/O x 3 Data Data Completed and Pending Completed studies during hospitalization [Text1]: 08/07/25 08/07/25 08/07/25 12:07 12:07 12:07 WBC 9.8 RBC 4.46 L Hgb 13.1 L Hct 39.6 L MCV 88.8 MCH 29.4 MCHC 33.1 RDW 13.2 Plt Count 285 MPV 9.3 L Immature Gran % (Auto) 0.3 Neut % (Auto) 78.3 H Lymph % (Auto) 15.5 L Richardson % (Auto) 5.6 Eos % (Auto) 0.1 Baso % (Auto) 0.2 Lymph # (Auto) 1.5 Richardson # (Auto) 0.6 Eos # (Auto) 0.0 Baso # (Auto) 0.0 Abs Immat Gran (auto) 0.03 Absolute Neuts (auto) Cancelled 7.6 Absolute Nucleated RBC 0.000 Nucleated RBC % (auto) 0.0 Sodium 139 Potassium 3.8 Chloride 100 Carbon Dioxide 29 Anion Gap 14 BUN 9 Creatinine 0.85 0.85 Estim Creat Clear Calc 103.9 Estimated GFR POC Glucose Random Glucose Estimat Average Glucose Hemoglobin A1c % Calcium Total Bilirubin AST ALT Alkaline Phosphatase Total Protein Albumin Triglycerides Cholesterol LDL Cholesterol, Calc HDL Cholesterol Vitamin B12 Folate TSH Clozapine Norclozapine 08/07/25 08/07/25 08/07/25 12:07 12:07 18:37 WBC RBC Hgb Hct MCV MCH MCHC RDW Plt Count MPV Immature Gran % (Auto) Neut % (Auto) Lymph % (Auto) Richardson % (Auto) Eos % (Auto) Baso % (Auto) Lymph # (Auto) Richardson # (Auto) Eos # (Auto) Baso # (Auto) Abs Immat Gran (auto) Absolute Neuts (auto) Absolute Nucleated RBC Nucleated RBC % (auto) Sodium Potassium Chloride Carbon Dioxide Anion Gap BUN Creatinine Estim Creat Clear Calc 103.9 Estimated GFR > 60 > 60 POC Glucose Random Glucose 154 H Estimat Average Glucose 131 Hemoglobin A1c % 6.2 H Calcium 9.6 Total Bilirubin 0.3 AST 27 ALT 22 Alkaline Phosphatase 102 Total Protein 7.2 Albumin 4.7 Triglycerides 198 H Cholesterol 198 LDL Cholesterol, Calc 111 H HDL Cholesterol 48 Vitamin B12 > 2000 H Folate 5.6 TSH 2.44 Clozapine 134 Norclozapine 100 08/07/25 08/08/25 08/08/25 19:53 07:25 21:28 WBC RBC Hgb Hct MCV MCH MCHC RDW Plt Count MPV Immature Gran % (Auto) Neut % (Auto) Lymph % (Auto) Richardson % (Auto) Eos % (Auto) Baso % (Auto) Lymph # (Auto) Richardson # (Auto) Eos # (Auto) Baso # (Auto) Abs Immat Gran (auto) Absolute Neuts (auto) Absolute Nucleated RBC Nucleated RBC % (auto) Sodium Potassium Chloride Carbon Dioxide Anion Gap BUN Creatinine Estim Creat Clear Calc Estimated GFR POC Glucose 138 H 100 182 H Random Glucose Estimat Average Glucose Hemoglobin A1c % Calcium Total Bilirubin AST ALT Alkaline Phosphatase Total Protein Albumin Triglycerides Cholesterol LDL Cholesterol, Calc HDL Cholesterol Vitamin B12 Folate TSH Clozapine Norclozapine 08/09/25 08/10/25 08/11/25 07:22 07:44 07:20 WBC RBC Hgb Hct MCV MCH MCHC RDW Plt Count MPV Immature Gran % (Auto) Neut % (Auto) Lymph % (Auto) Richardson % (Auto) Eos % (Auto) Baso % (Auto) Lymph # (Auto) Richardson # (Auto) Eos # (Auto) Baso # (Auto) Abs Immat Gran (auto) Absolute Neuts (auto) Absolute Nucleated RBC Nucleated RBC % (auto) Sodium Potassium Chloride Carbon Dioxide Anion Gap BUN Creatinine Estim Creat Clear Calc Estimated GFR POC Glucose 140 H 96 101 Random Glucose Estimat Average Glucose Hemoglobin A1c % Calcium Total Bilirubin AST ALT Alkaline Phosphatase Total Protein Albumin Triglycerides Cholesterol LDL Cholesterol, Calc HDL Cholesterol Vitamin B12 Folate TSH Clozapine Norclozapine 08/11/25 08/12/25 08/13/25 22:14 08:00 08:01 WBC RBC Hgb Hct MCV MCH MCHC RDW Plt Count MPV Immature Gran % (Auto) Neut % (Auto) Lymph % (Auto) Richardson % (Auto) Eos % (Auto) Baso % (Auto) Lymph # (Auto) Richardson # (Auto) Eos # (Auto) Baso # (Auto) Abs Immat Gran (auto) Absolute Neuts (auto) Absolute Nucleated RBC Nucleated RBC % (auto) Sodium Potassium Chloride Carbon Dioxide Anion Gap BUN Creatinine Estim Creat Clear Calc Estimated GFR POC Glucose 137 H 122 H 89 Random Glucose Estimat Average Glucose Hemoglobin A1c % Calcium Total Bilirubin AST ALT Alkaline Phosphatase Total Protein Albumin Triglycerides Cholesterol LDL Cholesterol, Calc HDL Cholesterol Vitamin B12 Folate TSH Clozapine Norclozapine 08/14/25 08/14/25 07:40 07:47 WBC RBC Hgb Hct MCV MCH MCHC RDW Plt Count MPV Immature Gran % (Auto) Neut % (Auto) Lymph % (Auto) Richardson % (Auto) Eos % (Auto) Baso % (Auto) Lymph # (Auto) Richardson # (Auto) Eos # (Auto) Baso # (Auto) Abs Immat Gran (auto) Absolute Neuts (auto) 9.4 H Absolute Nucleated RBC Nucleated RBC % (auto) Sodium Potassium Chloride Carbon Dioxide Anion Gap BUN Creatinine 0.80 Estim Creat Clear Calc 110.4 Estimated GFR > 60 POC Glucose 107 Random Glucose Estimat Average Glucose Hemoglobin A1c % Calcium Total Bilirubin AST ALT Alkaline Phosphatase Total Protein Albumin Triglycerides Cholesterol LDL Cholesterol, Calc HDL Cholesterol Vitamin B12 Folate TSH Clozapine Norclozapine DS: Summary Hospital Course Hospital Course: Mr. Montelongo is a 45 year-old male with hx of schizophrenia who was brought to [facility] ED due to presenting as confused and less interactive. It appears that there had been concerns in terms of his ability to care for himself and follow up with care at home. He had an episode of urinary retention for which a freitas was inserted on 05/21/2025 complicated by ventral meatal erosion. He failed to attend OP appointments with OP urologist. He had UTI but unclear if he had completed treatment. He was medically admitted. He was afebrile. No respiratory symptoms noted although chest CT did show clustered ground glass nodules. He initially was started on IV antibiotic given concern of AMS, but these were discontinued when culture came back negative. Per [facility] pt had stopped taking clozapine few days prior to presenting to the ED. He also had constipation, which was proactively treated with lactulose, senna and miralax. Freitas was removed on 08/05/2025. Of note, his mother had 4 days prior to him presenting to the hospital. On admission to [facility], pt presents as calm and cooperative but reported feeling confused. He reports he remembered hearing voices but denies any voices today. He does report at baseline he sees animals and people. He reports auditory hallucinations are common but denies hearing voices today. He denies SI/HI. He reports he started clozapine one year ago and it has been helpful. He reports his sleep is good. He reports he has a hx of suicide attempts but none recently. He reports his medications are in a locked box and [facility] gives them to him given extensive hx of OD on his medications (pt reports more than 50 times he has OD'd, his sister of suicide, and brother has attempted suicide). He presents as future oriented stating that he is feeling better and hopes at some point soon to return to school. Past medication trials: clozapine, abilify. Initial tx plan -admit to , CV, 15 minutes checks for safety -Continue clozapine 150 mg qhs - continue abilify 20mg po daily which was increased from 15mg to 20 at prior hospital. -continue bladder scan x 2 days. straight cath if residual>500cc ANC 7.6 on 08/07/2508/09 reports increase CAH, no plan or intent to harm self. Start clozapine 25mg po daily, continue 150mg po added miralax, lactulose for constipation. he already has sennakot. avoid bulk agents. Zero post residual volume on bladder scans, which were discontinued 08/10 Constipation improved. continues to endorse CAH. AM clozaril increased to 50mg po daily today, continue 150mg po qhs. continue abilify 20mg po daily. 08/11: Mood/psychotic symptoms improved. Tolerating clozapine titration. Had BM today. Continue current tx plan 08/12: Pt denies SI. CAH are less bothersome and resolve when he walks away. He is agreeable w/ recs to titrate the clozapine to 175 mg tonight. Continue 50 mg qam and Abilfy 20 mg qd. Had BM today 08/13: Pt denies any AH/VH, SI or violent ideation. Denies med side effects. Had BM this am. Feels safe with plan to be discharged tomorrow 08/14: Pt denies AH/VH, SI or violent ideation and feels safe with plan to discharge today. He has not had any behavioral issues throughout his admission. He has been visible in the milieu, interacts appropriately with staff and peers and has attended groups. He has had good sleep and appetite. Status at Discharge Functional status at discharge: independent ambulation Overall status at discharge: patient is back to baseline Time Spent with Patient Time attestation: Total time managing care of this patient today ____ minutes. Time spent: Greater than 30 minutes Specific discharge activities: 45 min spent on discharge planning/documentation, patient interview Discharge Plan Discharge Anticipated Discharge Date/Time: 08/14/25 10:30 Patient Disposition: Home, Self-Care Discharge Diagnosis: Schizophrenia Referrals: [facility] [Other] - 1 Week Referral Note: *The older adult social work specialist at [facility] referred you to the above [facility] [place]. Please follow up at the phone number listed above for more information. [facility] (Psychiatry) [Other] - 08/26/25 10:00 am Referral Note: IN OFFICE APPOINTMENT Therapy [Other] - 1 Week Referral Note: *Your psychiatrist's office offers individual therapy. However, the referral must come from your primary care physician (PCP). Your PCP, Federico Crawford ([phone]), has been notified of this. Please reach out to him for further assistance. [facility] [Other] - 1 Week Referral Note: *Your visiting nurse will be notified of your scheduled discharge. Please reach out to [facility] at the number listed above with any questions/concerns. [facility] [Provider Group] - 1 Week Referral Note: 12-3-25 [facility] was added to patients chart. Please call [phone] or your own PCP to schedule a follow up appt within 7-10 days of discharge. Patient couldn't remember PCP info. Discharge Medications: New acetaminophen 325 mg Tablet 650 mg PO Q6H PRN (Reason: Headache/Pain, Scale 1-10) Qty: 0 0RF aripiprazole [Abilify] 20 mg Tablet 20 mg PO DAILY 30 Days Qty: 30 0RF clozapine 100 mg tablet See Rx Instructions .ROUTE .COMPLEX 30 Days Qty: 60 0RF Rx Instructions: Take 1/2 tab po qam (50 mg) and 1.5 tabs (150 mg) qhs. clozapine 25 mg Tablet See Rx Instructions .ROUTE .COMPLEX 30 Days Qty: 30 0RF Rx Instructions: Take one 25 mg tab po qhs with 1.5 of 100 mg tabs for total of 175 mg qhs lactulose 10 gram/15 mL Solution 20 g PO BID PRN (Reason: Constipation) 30 Days Qty: 1800 0RF metformin 500 mg Tablet 500 mg PO BIDWM 30 Days Qty: 60 0RF magnesium hydroxide [Milk of Magnesia] 400 mg/5 mL Suspension 30 ml PO DAILY PRN (Reason: Constipation) Qty: 0 0RF cholecalciferol (vitamin D3) 25 mcg (1,000 unit) Tablet 50 mcg PO DAILY Qty: 0 0RF Continued sennosides [senna] 8.6 mg tablet 17.2 mg PO BID atorvastatin 20 mg tablet 20 mg PO DAILY insulin glargine [Lantus U-100 Insulin] 100 unit/mL solution 16 unit subcut BEDTIME glipizide 10 mg tablet 10 mg PO DAILY cyanocobalamin (vitamin B-12) [Vitamin B-12] 1,000 mcg tablet 1,000 mcg PO DAILY melatonin 3 mg tablet 3 mg PO BEDTIME PRN (Reason: insomnia) tamsulosin 0.4 mg capsule 0.4 mg PO DAILY docusate sodium 100 mg capsule 100 mg PO BID polyethylene glycol 3350 [Gavilax] 17 gram/dose powder 34 g PO BID finasteride 5 mg tablet 5 mg PO DAILY ferrous sulfate 325 mg (65 mg iron) Tablet 325 mg PO DAILY Discontinued metformin 500 mg tablet 500 mg PO BID clozapine 100 mg tablet 150 mg PO BEDTIME benztropine 1 mg tablet 1 mg PO BID bacitracin 500 unit/gram ointment 1 appl topical TID aripiprazole 20 mg Tablet 20 mg PO DAILY diclofenac sodium 1 % Gel 2 g TOPICAL QID PRN (Reason: Pain) Rx Instructions: anterio chest wall pain Discharge Orders: Discharge Order (Routine); Ordered 08/14/25 Ordered By: Maria Luisa Desai Diet: Diabetic diet Activity on Discharge: No Restrictions Stand Alone Forms: Patient Portal Discharge page, Community Support Print Language: Sami Care Plan Goals: Maintain safe behaviors Practice coping skills Take medications as prescribed Maintain regular follow-ups with your outpatient providers Health Concerns: Urinary retention s/p freitas catheter which was removed at outside hospital on 08/05 continue baseline flomax, proscar Benztropine discontinued Bladder scans were done. No urinary retention. T2DM Hba1c 6.2 at outside hospital continued on baseline metformin, glipizide, lantus HLD continued on statin Constipation -managed with senna, colace, prn lactulose and MiraLax Plan of Treatment: Follow up with your psychiatric provider, PCP and other outpatient providers Take your medication as prescribed Assessment: Risk assessment at the time of discharge: Patient was interviewed on the day of discharge and denied SI/violent ideation Pt has utilized good coping skills and has maintained safe behaviors on the unit Pt is currently at low risk of harm to self or others and has a safety plan that includes presenting to the closest ER or calling 911 if feeling unsafe. Pt has been observed closely by unit staff and has not engaged in any behaviors that suggest dangerous to self or others
--- NOTE | 2025-08-14 12:53 | PC.NURSE ---
Patient engages easily. Reports mood is stable, denies depression or sadness, denies SI/HI plan or intent. Denies perceptual disturbances, no overt psychosis or expressed delusions. Believes it was helpful for him to be here. States he feels way better , states his perspective has changed. Discharge paperwork reviewed, reports understanding. Discharge appointments reviewed reports understanding. Discharge medications reviewed with patient repots understanding. All belongings taken with patient. Crisis numbers provided to patient, resource booklet provided to patient.
== END 2025-08-14 11:27 | disposition home or self-care (01) | DRG 750 ==
PROVIDERS: Social Worker; Admitting Provider Psychiatry & Neurology Psychiatry; Visit Provider Psychiatry & Neurology Psychiatry
DX: F20.9 Schizophrenia, unspecified (principal); E11.9 Type 2 diabetes mellitus without complications; K59.00 Constipation, unspecified; E78.5 Hyperlipidemia, unspecified; Z91.51 Personal history of suicidal behavior; Z79.4 Long term (current) use of insulin; Z79.84 Long term (current) use of oral hypoglycemic drugs; Z79.899 Other long term (current) drug therapy
CPT/HCPCS: 36415; 80053; 80061; 80159; 82565; 82607; 82746; 82947; 83036; 84443; 85025; 85048

== ENCOUNTER → 2025-08-07 02:36 | Outpatient (BNV) | payer OTHER, SELFPAY | PROVIDERS: Admitting Provider Psychiatry & Neurology Psychiatry; Visit Provider Social Worker | DX: F20.9 Schizophrenia, unspecified (principal) | CPT/HCPCS: 90792; 99231; 99232; 99239 ==

== ENCOUNTER → 2025-08-07 02:36 | Outpatient (BNV) | payer OTHER, SELFPAY | PROVIDERS: Admitting Provider Psychiatry & Neurology Psychiatry; Visit Provider Physician Assistant Medical | DX: R33.9 Retention of urine, unspecified (principal) | CPT/HCPCS: 99221 ==